=== PATIENT | female | born 1950 | race Caucasian/White ===

== ENCOUNTER 2018-06-09 09:50 | Emergency (ER) | payer BC, MEDICARE ==
--- OUTSIDE RECORDS SUMMARY | 2018-06-09 10:03 | XMS REPORT ---
:1950 External Reference #:[id number] Author Organization [facility] Medicine Address [address] [place] [address] Phone [phone] Care Team Providers Name Role Phone HCP given Primary Care Physician Unavailable Payers Type Date Identification Numbers Payment Provider Subscriber Commercial Policy Number: [id number] [facility] Demetriusburak Anguiano PayID: [id number] [address] [address] [place] [address] Problems Description No Information Family History Date Family Member(s) Problem(s) Comments General Diabetes, NOS in grdprt General pt is estranged from her sibs and somewhat from her children - no information is available Father High Blood Pressure : (age 90 Father due to Unknown Causes estranged Years) Onset: (09/26/2016) Mother Unknown Number of Children 3 sons and 1 daughter Number of Siblings Siblings: 4 brothers and 1 sister First Brother Heart Disease First Brother Allergies Social History Type Date Description Comments Marital Status 07/2017 Lives With Alone Work Status Not Currently Working Cigarette Use 09/01/2014 Denies Cigarette Use ETOH Use Rarely consumes alcohol Smoking Non Smoker Exercise Type/Frequency Exercises rarely Sun Exposure moderate amount of sun uses clothing protection exposure Allergies, Adverse Reactions, Alerts Date Description Reaction Status Severity Comments 03/28/2009 Penicillins active 07/05/2014 Sulfa active 01/14/2005 NKDA inactive Medications Medication Date Status Form Strength Qnty SIG Indications Ordering Provider Valacyclovir 05/11/ Active Tablets 500mg 6tabs take one A60.1 Silcoff, HCL 2018 tablet by Bin, mouth 2x/day M.D. for 3 days starting at onset of recurrent sores on anus Co Q-10 04/27/ Active Capsules 100mg 2 by mouth Unknown 2018 every day Milk Thistle 02/25/ Active Unknown 2017 PT For evaluate and M25.512 Silcomayo, Left>Right 2018 - treat, Bin, Shoulder Pain 05/10/ modalities as M.D. 2018 needed, instruct in hep Nifedipine Hx Ointment 30gm apply to anal K60.0 Silcoff, 2018 - region Bin, 03/29/ 2-4x/day; for M.D. 2018 acute anal fissure Lidocaine Cream 5% 30gm apply to K60.0 Silcoff, 2018 - affected area Bin, 03/29/ around anus M.D. 2017 up to every 4hrs as needed for pain PT For Vertigo please [phone] Justin, (BPV) 2008 - evaluate and Bin, 05/12/ treat M.D. 2011 Please Offer interfering [phone] Rosariocomayo, PT For 2005 - with ability Bin, Abdominal Wall 09/24/ to exercise. M.D. Pain 2004 please evaluate and treat. Immunizations CPT Code Status Date Vaccine Reaction Lot # [id number] Given 04/28/2018 Prevnar 13 [id number] Given 08/04/2011 Adacel or Boostrix, TDaP [id number] 33040 Given 09/18/2008 Flu, Split Virus 3Yrs [id number] Given 01/18/2000 DO Not Use- use U-code instead lyme vaccine -Unlisted Immunization Procedure 97110 Given 03/19/1999 DO Not Use- use U-code instead -Unlisted Immunization Procedure 36250 Given 02/16/1999 DO Not Use- use U-code instead -Unlisted Immunization Procedure 96229 Given 11/19/1997 Td Immunization [id number] Refused 01/06/2018 Shingrix Zoster (Shingles) Vaccine (HZV) Recomb,Subnit,Adjuvanted [id number] Refused 09/26/2016 Zostavax [id number] Refused 09/26/2016 Influenza Virus Vaccine, Quadrivalent, [place] Use [id number] Refused 09/01/2014 Flu, Split Virus 3Yrs Vital Signs Date Vital Result Comment 05/11/2018 Weight 174.00 lb 04/28/2018 Weight 178.50 lb 03/30/2018 Weight 180.00 lb with shoes 02/26/2018 Weight 191.00 lb 02/08/2018 Heart Rate 84 /min reg Respiratory Rate 14 /min not laboured Weight 185.00 lb 01/06/2018 Heart Rate 80 /min reg Respiratory Rate 14 /min not laboured Body Temperature 98.0 F Height 67.25 inches 5'7.25" Weight 196.00 lb BMI (Body Mass Index) 30.5 kg/m2 09/26/2016 Heart Rate 80 /min Respiratory Rate 16 /min Height 67 inches 5'7" Weight 220.00 lb BMI (Body Mass Index) 34.5 kg/m2 09/01/2014 BP Systolic 160 mmHg BP Diastolic 88 mmHg 07/05/2014 BP Systolic 146 mmHg BP Diastolic 86 mmHg Height 67.5 inches 5'7.50" shoes on Weight 210.00 lb shoes on BMI (Body Mass Index) 32.4 kg/m2 06/15/2013 Height 67 inches 5'7" Weight 205.00 lb BMI (Body Mass Index) 32.1 kg/m2 05/13/2012 Height 67.50 inches 5'7.50" Weight 197.00 lb BMI (Body Mass Index) 30.4 kg/m2 03/28/2011 BP Systolic 150 mmHg BP Diastolic 60 mmHg BP Systolic Recheck 149 mmHg BP Diastolic Recheck 61 mmHg Heart Rate 69 /min 67 Height 67.50 inches 5'7.50" Weight 207.00 lb BMI (Body Mass Index) 31.9 kg/m2 03/29/2009 BP Systolic 130 mmHg BP Diastolic 98 mmHg Heart Rate 80 /min Respiratory Rate 16 /min Body Temperature 98.3 F 03/28/2009 BP Systolic 130 mmHg BP Diastolic 82 mmHg Body Temperature 98.2 F Height 67.75 inches w/shoes Weight 195.00 lb BMI (Body Mass Index) 29.9 kg/m2 01/17/2009 BP Systolic 130 mmHg BP Diastolic 84 mmHg Body Temperature 98.4 F Weight 194.00 lb Last Menstrual Period 0 10/05/2008 BP Systolic 139 mmHg BP Diastolic 100 mmHg Body Temperature 98.4 F Height 66.5 inches 5'6.50" 10/05/2008 Height 66.5 inches 5'6.50" 09/18/2008 BP Systolic 120 mmHg BP Diastolic 84 mmHg Height 66.5 inches 5'6.50" Weight 198.00 lb BMI (Body Mass Index) 31.5 kg/m2 09/16/2007 BP Systolic 110 mmHg BP Diastolic 70 mmHg Heart Rate 70 /min Respiratory Rate 16 /min Height 67 inches 5'7" Weight 200.00 lb BMI (Body Mass Index) 31.3 kg/m2 05/12/2007 BP Systolic 126 mmHg BP Diastolic 82 mmHg Height 67 inches 5'7" Weight 202.00 lb BMI (Body Mass Index) 31.6 kg/m2 Last Menstrual Period 0 03/18/2007 BP Systolic 130 mmHg BP Diastolic 84 mmHg Body Temperature 98.7 F Height 67 inches 5'7" Weight 196.00 lb BMI (Body Mass Index) 30.7 kg/m2 09/14/2006 BP Systolic 122 mmHg BP Diastolic 82 mmHg Height 67 inches 5'7" Weight 199.00 lb BMI (Body Mass Index) 31.2 kg/m2 08/13/2005 BP Systolic 120 mmHg BP Diastolic 80 mmHg Height 67 inches 5'7" Weight 188.00 lb BMI (Body Mass Index) 29.4 kg/m2 05/21/2005 BP Systolic 126 mmHg BP Diastolic 88 mmHg Heart Rate 80 /min rrr Respiratory Rate 16 /min easy Height 67 inches 5'7" Weight 190.00 lb BMI (Body Mass Index) 29.8 kg/m2 Last Menstrual Period 0 02/12/2005 BP Systolic 114 mmHg BP Diastolic 76 mmHg Body Temperature 97.9 F Weight 198.00 lb 01/14/2005 BP Systolic 100 mmHg BP Diastolic 80 mmHg Heart Rate 80 /min Weight 196.00 lb Last Menstrual Period 0 11/20/2004 BP Systolic 126 mmHg BP Diastolic 90 mmHg Heart Rate 80 /min Body Temperature 98.1 F Weight 194.00 lb 11/14/2004 BP Systolic 122 mmHg BP Diastolic 76 mmHg Body Temperature 98.6 F Weight 192.00 lb 10/21/2004 BP Systolic 108 mmHg standing BP Diastolic 80 mmHg standing Heart Rate 80 /min Body Temperature 99.4 F Weight 196.00 lb 10/03/2004 BP Systolic 122 mmHg BP Diastolic 78 mmHg Weight 214.00 lb 10/03/2004 BP Systolic 122 mmHg BP Diastolic 78 mmHg Results Test Date Test Result H/L Range Note Laboratory test 05/11/2018 Herpes Simplex PCR <pending> finding Laboratory test 02/08/2018 Alpha 1 Antitrypsin 108 mg/dL 100 - 190 1 finding A1a Anti Nuclear Antibody 3.9 U 2 Smooth Muscle Antibody Negative Negative 3 CMV Igg/Igm 02/08/2018 Cytomegalovirus IgG Antibody Negative Negative 4 Cytomegalovirus IgM Antibody Negative Negative Laboratory test finding 02/08/2018 Ceruloplasmin 24.4 mg/dL 5 Endomysial Abs Negative Negative 6 Ferritin 272.5 ng/mL 11-307 Iron & Iron Binding Capacity 02/08/2018 Iron 29 g/dL Low 50-212 Unsaturated Iron Binding 159 g/dL Total Iron Binding Capacity 188 g/dL Low 250-450 Transferrin 134 mg/dL Low 203-362 % Iron Saturation 15 % 15-55 Laboratory test finding 02/08/2018 GGTP 69 U/L High 9-64.0 Hepatitis C Antibody Nonreactive Nonreactive Hepatitis B Surface Ag Nonreactive Nonreactive Hepatitis A AB Igm Nonreactive Nonreactive Liver Function Panel 02/08/2018 Total Protein 5.5 g/dL Low 6.4-8.9 Albumin 2.9 g/dL Low 3.2-5.2 Globulin 2.6 g/dL 2-4 Albumin/Globulin Ratio 1.1 1-3 Total Bilirubin 0.60 mg/dL 0.2-1.0 Direct Bilirubin 0.20 mg/dL High 0.03-0.18 Indirect Bilirubin 0.4 mg/dL 0.3-1.0 Alkaline Phosphatase 83 U/L 34-104 Alt 67 U/L High 7-52 Ast 80 U/L High 13-39 Inr/Protime 02/08/2018 Inr 0.99 0.77-1.02 Laboratory test finding 02/08/2018 Ammonia 35 mcmol/L 16-53 Comp Metabolic Panel 01/21/2018 Sodium 134 mmol/L Low 139-145 Potassium 4.9 mmol/L 3.5-5.0 Chloride 101 mmol/L 101-111 Co2 Carbon Dioxide 25 mmol/L 22-32 Anion Gap 8 mmol/L 2-11 Glucose 81 mg/dL 70-100 Blood Urea Nitrogen 13 mg/dL 6-24 Creatinine 0.89 mg/dL 0.51-0.95 BUN/Creatinine Ratio 14.6 8-20 Calcium 8.6 mg/dL 8.6-10.3 Total Protein 5.2 g/dL Low 6.4-8.9 Albumin 2.7 g/dL Low 3.2-5.2 Globulin 2.5 g/dL 2-4 Albumin/Globulin Ratio 1.1 1-3 Total Bilirubin 0.50 mg/dL 0.2-1.0 Alkaline Phosphatase 75 U/L 34-104 Alt 81 U/L High 7-52 Ast 105 U/L High 13-39 Egfr Non- 63.5 >60 Egfr 81.6 >60 7 Laboratory test finding 01/21/2018 Prealbumin 6 mg/dL Low 18-38 Laboratory test finding 01/06/2018 Occult Blood, F I T negative Laboratory test finding 01/06/2018 TSH (Thyroid Stim 5.05 mcIU/mL 0.34- 5.60 Horm) Prealbumin 7 mg/dL Low 18-38 B-Type Natriuretic Peptide BNP 61 pg/mL 8 CBC Auto Diff 01/06/2018 White Blood Count 8.0 10^3/uL 3.5-10.8 Red Blood Count 4.56 10^6/uL 4.0-5.4 Hemoglobin 13.1 g/dL 12.0-16.0 Hematocrit 40 % 35-47 Mean Corpuscular Volume 87 fL 80-97 Mean Corpuscular Hemoglobin 29 pg 27-31 Mean Corpuscular HGB Conc 33 g/dL 31-36 Red Cell Distribution Width 18 % High 10.5-15 Platelet Count 363 10^3/uL 150-450 Mean Platelet Volume 9.3 um3 7.4-10.4 Abs Neutrophils 5.5 10^3/uL 1.5-7.7 Abs Lymphocytes 1.5 10^3/uL 1.0-4.8 Abs Monocytes 0.7 10^3/uL 0-0.8 Abs Eosinophils 0.3 10^3/uL 0-0.6 Abs Basophils 0 10^3/uL 0-0.2 Abs Nucleated RBC 0 10^3/uL Granulocyte % 68.3 % 38-83 Lymphocyte % 19.2 % Low 25-47 Monocyte % 8.4 % High 0-7 Eosinophil % 3.5 % 0-6 Basophil % 0.6 % 0-2 Nucleated Red Blood Cells % 0 Comp Metabolic Panel 01/06/2018 Sodium 135 mmol/L 133-145 Potassium 4.5 mmol/L 3.5-5.0 Chloride 104 mmol/L 101-111 Co2 Carbon Dioxide 25 mmol/L 22-32 Anion Gap 6 mmol/L 2-11 Glucose 85 mg/dL 70-100 Blood Urea Nitrogen 10 mg/dL 6-24 Creatinine 0.78 mg/dL 0.51-0.95 BUN/Creatinine Ratio 12.8 8-20 Calcium 8.9 mg/dL 8.6-10.3 Total Protein 5.4 g/dL Low 6.4-8.9 Albumin 2.9 g/dL Low 3.2-5.2 Globulin 2.5 g/dL 2-4 Albumin/Globulin Ratio 1.2 1-3 Total Bilirubin 0.40 mg/dL 0.2-1.0 Alkaline Phosphatase 64 U/L 34-104 Alt 89 U/L High 7-52 Ast 106 U/L High 13-39 Egfr Non- 74.1 >60 Egfr 95.3 >60 9 Order 09/26/2016 occult blood, screening <pending> Laboratory test finding 09/26/2016 Cytology SEE RESULT BELOW 10 Human Papilloma Virus Rna Negative Negative 11 CBC Auto Diff 09/01/2014 White Blood Count 5.5 10^3/uL 4.8-10.8 12 Red Blood Count 4.73 10^6/uL 4.0-5.4 12 Hemoglobin 14.3 g/dL 12.0-16.0 12 Hematocrit 44 % 35-47 12 Mean Corpuscular Volume 94 fL 80-97 12 Mean Corpuscular Hemoglobin 30 pg 27-31 12 Mean Corpuscular HGB Conc 32 g/dL 31-36 12 Red Cell Distribution Width 15 % 10.5-15 12 Platelet Count 181 10^3/uL 150-450 12 Mean Platelet Volume 9 um3 7.4-10.4 12 Abs Neutrophils 3.2 10^3/uL 1.5-7.7 12 Abs Lymphocytes 1.8 10^3/uL 1.0-4.8 12 Abs Monocytes 0.3 10^3/uL 0-0.8 12 Abs Eosinophils 0.1 10^3/uL 0-0.6 12 Abs Basophils 0 10^3/uL 0-0.2 12 Abs Nucleated RBC 0 10^3/uL 12 Granulocyte % 58.2 % 38-83 12 Lymphocyte % 33.8 % 25-47 12 Monocyte % 5.9 % 1-9 12 Eosinophil % 1.6 % 0-6 12 Basophil % 0.5 % 0-2 12 Nucleated Red Blood Cells % 0.1 12 Comp Metabolic Panel 09/01/2014 Sodium 136 mmol/L 133-145 12 Potassium 4.3 mmol/L 3.5-5.0 12, 13 Chloride 102 mmol/L 101-111 12 Co2 Carbon Dioxide 26 mmol/L 22-32 12 Anion Gap 8 mmol/L 2-11 12 Glucose 82 mg/dL 70-100 12 Blood Urea Nitrogen 15 mg/dL 6-24 12 Creatinine 1.04 mg/dL High 0.51-0.95 12 BUN/Creatinine Ratio 14.4 8-20 12 Calcium 9.7 mg/dL 8.6-10.3 12 Total Protein 7.2 g/dL 6.4-8.9 12 Albumin 4.3 g/dL 3.2-5.2 12 Globulin 2.9 g/dL 2-4 12 Albumin/Globulin Ratio 1.5 1-3 12 Total Bilirubin 0.70 mg/dL 0.2-1.0 12 Alkaline Phosphatase 63 U/L 34-104 12 Alt 12 U/L 7-52 12 Ast 15 U/L 13-39 12 Egfr Non- 53.7 >60 12 Egfr 69.1 >60 12, 14 Clotest 08/02/2013 Clotest (SEE NOTE) 15 Surgical Pathology 08/02/2013 S RUN DATE: <SEE NOTE> Laboratory test finding 06/15/2013 Hemoglobin 12.8 CBC No Diff 07/26/2012 White Blood Count 5.0 10^3/uL 4.8-10.8 Red Blood Count 3.43 10^6/uL Low 4.0-5.4 Hemoglobin 10.7 g/dL Low 12.0-16.0 Hematocrit 31 % Low 35-47 Mean Corpuscular Volume 91 fL 80-97 Mean Corpuscular Hemoglobin 31 pg 27-31 Mean Corpuscular HGB Conc 34 g/dL 31-36 Red Cell Distribution Width 15 % 10.5-15 Platelet Count 158 10^3/uL 150-450 Mean Platelet Volume 10 um3 7.4-10.4 Basic Metabolic Panel 07/26/2012 Sodium 141 mmol/L 133-145 Potassium 4.5 mmol/L 3.5-5.0 Chloride 108 mmol/L 101-111 Co2 Carbon Dioxide 29.0 mmol/L 22-32 Anion Gap 4.0 mmol/L 2-11 Glucose 83 mg/dL 70-100 Blood Urea Nitrogen 5 mg/dL Low 6-24 Creatinine 1.00 mg/dL 0.50-1.40 BUN/Creatinine Ratio 5.0 Low 8-20 Calcium 8.4 mg/dL 8.1-9.9 Egfr Non- 56.6 >60 Egfr 72.7 >60 17 Laboratory test finding 07/26/2012 Magnesium 1.8 mg/dL 1.7-2.6 CBC Auto Diff 07/25/2012 White Blood Count 7.7 10^3/uL 4.8-10.8 Red Blood Count 3.68 10^6/uL Low 4.0-5.4 Hemoglobin 11.2 g/dL Low 12.0-16.0 Hematocrit 34 % Low 35-47 Mean Corpuscular Volume 92 fL 80-97 Mean Corpuscular Hemoglobin 31 pg 27-31 Mean Corpuscular HGB Conc 33 g/dL 31-36 Red Cell Distribution Width 15 % 10.5-15 Platelet Count 184 10^3/uL 150-450 Mean Platelet Volume 10 um3 7.4-10.4 Abs Neutrophils 4.5 10^3/uL 1.5-7.7 Abs Lymphocytes 2.5 10^3/uL 1.0-4.8 Abs Monocytes 0.6 10^3/uL 0-0.8 Abs Eosinophils 0.1 10^3/uL 0-0.6 Abs Basophils 0 10^3/uL 0-0.2 Abs Nucleated RBC 0 10^3/uL Granulocyte % 58.5 % 38-83 Lymphocyte % 32.5 % 25-47 Monocyte % 7.5 % 1-9 Eosinophil % 0.9 % 0-6 Basophil % 0.6 % 0-2 Nucleated Red Blood Cells % 0 Basic Metabolic Panel 07/25/2012 Sodium 139 mmol/L 133-145 Potassium 4.4 mmol/L 3.5-5.0 Chloride 107 mmol/L 101-111 Co2 Carbon Dioxide 29.0 mmol/L 22-32 Anion Gap 3.0 mmol/L 2-11 Glucose 95 mg/dL 70-100 Blood Urea Nitrogen 5 mg/dL Low 6-24 Creatinine 0.90 mg/dL 0.50-1.40 BUN/Creatinine Ratio 5.6 Low 8-20 Calcium 8.7 mg/dL 8.1-9.9 Egfr Non- 63.9 >60 Egfr 82.1 >60 18 Laboratory test finding 07/25/2012 Magnesium 1.8 mg/dL 1.7-2.6 CBC No Diff 07/24/2012 White Blood Count 9.9 10^3/uL 4.8-10.8 Red Blood Count 3.82 10^6/uL Low 4.0-5.4 Hemoglobin 11.8 g/dL Low 12.0-16.0 Hematocrit 35 % 35-47 Mean Corpuscular Volume 91 fL 80-97 Mean Corpuscular Hemoglobin 31 pg 27-31 Mean Corpuscular HGB Conc 34 g/dL 31-36 Red Cell Distribution Width 15 % 10.5-15 Platelet Count 170 10^3/uL 150-450 Mean Platelet Volume 9 um3 7.4-10.4 Basic Metabolic Panel 07/24/2012 Sodium 136 mmol/L 133-145 Potassium 3.5 mmol/L 3.5-5.0 Chloride 102 mmol/L 101-111 Co2 Carbon Dioxide 30.0 mmol/L 22-32 Anion Gap 4.0 mmol/L 2-11 Glucose 105 mg/dL High 70-100 Calcium 8.6 mg/dL 8.1-9.9 Blood Urea Nitrogen 7 mg/dL 6-24 Creatinine 0.90 mg/dL 0.50-1.40 BUN/Creatinine Ratio 7.8 Low 8-20 Egfr Non- 63.9 >60 Egfr 82.1 >60 19 Laboratory test finding 07/24/2012 Magnesium 1.7 mg/dL 1.7-2.6 Troponin I 0.02 NG/ML 20 TSH (Thyroid Stimulating Horm) 2.84 MIU/ML 0.34-5.60 MRSA Screen 07/24/2012 MRSA Culture Screen (SEE NOTE) 21 CBC Auto Diff 07/23/2012 White Blood Count 10.9 10^3/uL High 4.8-10.8 Red Blood Count 4.04 10^6/uL 4.0-5.4 Hemoglobin 12.2 g/dL 12.0-16.0 Hematocrit 37 % 35-47 Mean Corpuscular Volume 91 fL 80-97 Mean Corpuscular Hemoglobin 30 pg 27-31 Mean Corpuscular HGB Conc 33 g/dL 31-36 Red Cell Distribution Width 15 % 10.5-15 Platelet Count 166 10^3/uL 150-450 Mean Platelet Volume 9 um3 7.4-10.4 Abs Neutrophils 9.8 10^3/uL High 1.5-7.7 Abs Lymphocytes 0.6 10^3/uL Low 1.0-4.8 Abs Monocytes 0.5 10^3/uL 0-0.8 Abs Eosinophils 0 10^3/uL 0-0.6 Abs Basophils 0 10^3/uL 0-0.2 Abs Nucleated RBC 0 10^3/uL Granulocyte % 90.1 % High 38-83 Lymphocyte % 5.5 % Low 25-47 Monocyte % 4.3 % 1-9 Eosinophil % 0 % 0-6 Basophil % 0.1 % 0-2 Nucleated Red Blood Cells % 0 Basic Metabolic Panel 07/23/2012 Sodium 136 mmol/L 133-145 Potassium 4.8 mmol/L 3.5-5.0 Chloride 103 mmol/L 101-111 Co2 Carbon Dioxide 30.0 mmol/L 22-32 Anion Gap 3.0 mmol/L 2-11 Glucose 175 mg/dL High 70-100 Blood Urea Nitrogen 8 mg/dL 6-24 Creatinine 0.90 mg/dL 0.50-1.40 BUN/Creatinine Ratio 8.9 8-20 Calcium 8.8 mg/dL 8.1-9.9 Egfr Non- 63.9 >60 Egfr 82.1 >60 22 Comp Metabolic Panel 07/13/2012 Sodium 138 mmol/L 135-145 23 Potassium 4.2 mmol/L 3.5-5.0 23 Chloride 106 mmol/L 101-111 23 Co2 (Carbon Dioxide) 25.0 mmol/L 22-32 23 Anion Gap 7.0 mmol/L 2-11 23, 24 Glucose 81 mg/dL 70-100 23 BUN 8 mg/dL 6-24 23 Creatinine 0.9 mg/dL 0.50-1.40 23 One Over Creatinine 1.11 23 BUN/Creatinine Ratio 8.9 8-20 23 Calcium 9.9 mg/dL 8.1-9.9 23 Total Protein 6.7 GM/DL 6.2-8.1 23 Albumin 4.2 GM/DL 3.2-5.2 23 Globulin 2.5 GM/DL 2-4 23 Albumin/Globulin Ratio 1.7 1-3 23 Bilirubin Total 0.9 mg/dL 0.4-1.5 23, 25 Alkaline Phosphatase 54 U/L 30-110 23 Alt (SGPT) 12 U/L Low 14-54 23 Ast (Sgot) 16 U/L 12-42 23 eGFR Non- 63.9 > 60 23 eGFR 82.1 > 60 23, 26 CBC Auto Diff 07/13/2012 White Blood Count 5.4 CUMM 4.8-10.8 23 Red Cell Count 4.33 CUMM 4.2-5.4 23 Hemoglobin 13.2 g/dL 12.0-16.0 23 Hematocrit 40 % 35-47 23 Mean Corpuscular Volume 93 um3 79-97 23 Mean Corpuscular Hemoglob 31 pg 27-31 23 Mean Corpuscular HGB Cone 33 g/dL 32-36 23 Redcell Distribution WDTH 16 % High 10.5-15 23 Platelet Count 196 CUMM 150-450 23 Mean Platelet Volume 8.7 um3 7.4-10.4 23 Absolute Neutrophil Count 3.0 1.5-7.7 23 Manual Differential 07/13/2012 Polysegmented Neutrophil 66 % 38-83 23 Lymphocyte 30 % 25-47 23 Monocyte 3 % 0-13 23 Eosinophil 1 % 0-6 23 RBC Morphology NORMAL 23 Anisocytosis SLIGHT 23 CBC Auto Diff 04/08/2012 White Blood Count 5.9 CUMM 4.8-10.8 Red Cell Count 3.97 CUMM Low 4.2-5.4 Hemoglobin 12.2 g/dL 12.0-16.0 Hematocrit 36 % 35-47 Mean Corpuscular Volume 90 um3 79-97 Mean Corpuscular Hemoglob 31 pg 27-31 Mean Corpuscular HGB Cone 34 g/dL 32-36 Redcell Distribution WDTH 17 % High 10.5-15 Platelet Count 191 CUMM 150-450 Mean Platelet Volume 8.8 um3 7.4-10.4 Gran % 48.4 % 38-83 Lymph % 40.7 % 25-47 Mononuclear % 7.9 % 1-9 Eosinophil % 2.6 % 0-6 Basophil % 0.4 % 0-2 Abs Lymphs 2.4 1.0-4.8 Abs Mononuclear 0.5 0-0.8 Absolute Neutrophil Count 2.9 1.5-7.7 Abs Eosinophils 0.2 0-0.6 Abs Basophils 0 0-0.2 Comp Metabolic Panel 04/08/2012 Sodium 138 mmol/L 135-145 Potassium 3.5 mmol/L 3.5-5.0 Chloride 111 mmol/L 101-111 Co2 (Carbon Dioxide) 24.0 mmol/L 22-32 Anion Gap 3.0 mmol/L 2-11 27 Glucose 89 mg/dL 70-100 BUN 14 mg/dL 6-24 Creatinine 0.8 mg/dL 0.50-1.40 One Over Creatinine 1.25 BUN/Creatinine Ratio 17.5 8-20 Calcium 9.1 mg/dL 8.1-9.9 Total Protein 6.7 GM/DL 6.2-8.1 Albumin 3.9 GM/DL 3.2-5.2 Globulin 2.8 GM/DL 2-4 Albumin/Globulin Ratio 1.4 1-3 Bilirubin Total 0.5 mg/dL 0.4-1.5 28 Alkaline Phosphatase 54 U/L 30-110 Alt (SGPT) 14 U/L 14-54 Ast (Sgot) 15 U/L 12-42 eGFR Non- 73.2 > 60 eGFR 94.1 > 60 29 Laboratory test finding 04/08/2012 Troponin-I 0 NG/ML 0-0.06 30 Urinalysis W/Microscopic 02/15/2012 Ua Color DANA Yellow Appearance-Urine CLEAR Clear Specific [place]-Ur 1.025 1.010-1.030 Esterase-Urine NEGATIVE Negative Nitrite NEGATIVE Negative [id number]-ZWN NEGATIVE Negative Protein-Urine NEGATIVE Negative PH-Urine 5.0 5-9 Blood-Urine 2+ Negative Ketones-Urine TRACE Negative Bilirubin-Ur SEE ICTOTEST Negative Glucose-Urine NEGATIVE Negative WBC-Urine 0-2 0-5 RBC-Urine 0-2 0-2 Mucus Urine SMALL None Epith Cells-Ur FEW None Laboratory test finding 02/15/2012 Ictotest POSITIVE 31 CBC No Diff 02/15/2012 White Blood Count 12.1 CUMM High 4.8-10.8 Red Cell Count 4.26 CUMM 4.2-5.4 Hemoglobin 13.4 g/dL 12.0-16.0 Hematocrit 39 % 35-47 Mean Corpuscular Volume 91 um3 79-97 Mean Corpuscular Hemoglob 31 pg 27-31 Mean Corpuscular HGB Cone 35 g/dL 32-36 Redcell Distribution WDTH 14 % 10.5-15 Platelet Count 248 CUMM 150-450 Mean Platelet Volume 8.6 um3 7.4-10.4 Comp Metabolic Panel 02/15/2012 Sodium 135 mmol/L 135-145 Potassium 3.7 mmol/L 3.5-5.0 Chloride 105 mmol/L 101-111 Co2 (Carbon Dioxide) 24.0 mmol/L 22-32 Anion Gap 6.0 mmol/L 2-11 32 Glucose 89 mg/dL 70-100 BUN 16 mg/dL 6-24 Creatinine 1.0 mg/dL 0.50-1.40 One Over Creatinine 1.00 BUN/Creatinine Ratio 16.0 8-20 Calcium 8.8 mg/dL 8.1-9.9 Total Protein 7.3 GM/DL 6.2-8.1 Albumin 3.6 GM/DL 3.2-5.2 Globulin 3.7 GM/DL 2-4 Albumin/Globulin Ratio 1.0 1-3 Bilirubin Total 0.8 mg/dL 0.4-1.5 33 Alkaline Phosphatase 78 U/L 30-110 Alt (SGPT) 37 U/L 14-54 Ast (Sgot) 32 U/L 12-42 eGFR Non- 56.6 > 60 eGFR 72.7 > 60 34 Laboratory test finding 02/15/2012 Amylase 31 U/L 20-120 35 Manual Differential 02/15/2012 Polysegmented Neutrophil 79 % 38-83 Band Neutrophil 3 % 0-8 Lymphocyte 16 % Low 25-47 Monocyte 2 % 0-13 Absolute Neutrophil Count 9.90 RBC Morphology NORMAL Laboratory test 10/05/2008 Surgical Pathology <SEE 36 finding NOTE> Laboratory test 09/18/2008 Cytology no/hpv neg 37 finding Laboratory test 09/18/2008 Occult Blood - Stool neg x3 finding Urine Micro Inhouse 09/18/2008 Urine Microscopic SEE RESULT NOTE 38 Inhouse Ua Inhouse 09/18/2008 Ua Glucose - 38 Ua Bilirubin - 38 Ua Ketones - 38 Ua Specific [place] 1.025 38 Ua Blood SM 38 Ua PH 5.0 38 Ua Protein - 38 Ua Urobilinogen - 38 Ua Nitrite - 38 Ua Leukocytes - 38 Laboratory test finding 09/21/2007 Occult Blood - Stool neg x3 Laboratory test finding 09/20/2007 Cytology wnl 39 CBC With Manual Diff 12/24/2006 White Blood Count 5.6 CUMM 4.8-10.8 Absolute Neutrophil Count 2.1 Anisocytosis SLIGHT Hematocrit 41 % 35-47 Hemoglobin 14.1 g/dL 12.0-16.0 Eosenophil 3 % 0-6 Lymphocyte 51 % High 5-47 Mean Corpuscular HGB Cone 35 g/dL 32-36 Mean Corpuscular Hemoglob 31 pg 27-31 Mean Corpuscular Volume 89 um3 79-97 Monocyte 8 % 0-13 Mean Platelet Volume 8.9 um3 7.4-10.4 Platelet Count 262 CUMM 150-450 Polysegmented Neutrophil 38 % 38-83 Red Cell Count 4.59 CUMM 4.2-5.4 Redcell Distribution WDTH 14 % 10.5-15 Comp Metabolic Panel 12/24/2006 One Over Creatinine 0.83 Anion Gap 7.0 mmol/L 2-11 40 Albumin/Globulin Ratio 1.8 1-3 Albumin 4.1 GM/DL 3.6-5.4 Alkaline Phosphatase 85 U/L 30-110 Alt (SGPT) 17 U/L 14-54 Ast (Sgot) 19 U/L 12-42 BUN 18 mg/dL 6-24 Calcium 10.1 mg/dL 8.7-10.2 Chloride 107 mmol/L 101-111 Co2 (Carbon Dioxide) 30.0 mmol/L 22-32 Globulin 2.3 GM/DL 2-4 Glucose 92 mg/dL 70-105 Potassium 5.2 mmol/L High 3.5-5.0 Sodium 144 mmol/L 135-145 Bilirubin Total 0.7 mg/dL 0.4-1.5 Total Protein 6.4 GM/DL 6.2-8.1 BUN/Creatinine Ratio 15.0 8-20 Creatinine 1.2 mg/dL 0.5-1.4 Lipid Profile 12/24/2006 Cholesterol/HDL Ratio 3.48 AVERAGE 1-4.44 (Trig/Chol/HDL) Cholesterol 254 mg/dL High Less Than 200 41 Triglyceride 73 mg/dL 40-200 High Density Lipoprotein 73 mg/dL High 40-60 42 Low Density Lipoprotein 166 mg/dL High Less Than 100 43 Laboratory test finding 09/15/2006 Urine Microscopic Inhouse 5-10wbc,epi Ua Inhouse 09/15/2006 Ua Glucose - Ua Bilirubin - Ua Ketones - Ua Specific [place] 1.030 Ua Blood + Ua PH 5.0 Ua Protein - Ua Urobilinogen - Ua Nitrite - Ua Leukocytes ++ Laboratory test finding 09/14/2006 Cytology normal 44 Laboratory test finding 05/21/2005 Urine Microscopic Inhouse 0-1 WBC,1-2 epi Ua Inhouse 05/21/2005 Ua Glucose neg Ua Bilirubin neg Ua Ketones neg Ua Specific [place] 1.015 Ua Blood mod Ua PH 5.0 Ua Protein neg Ua Urobilinogen neg Ua Nitrite neg Ua Leukocytes neg Laboratory test finding 11/15/2004 Urine Microscopic Inhouse SEE RESULT NOTES 45 Ua Inhouse 11/15/2004 Ua Glucose NEG 45 Ua Bilirubin NEG 45 Ua Ketones NEG 45 Ua Specific [place] 1.030 45 Ua Blood ++ 45 Ua PH 5.0 45 Ua Protein TRACE 45 Ua Urobilinogen NEG 45 Ua Nitrite NEG 45 Ua Leukocytes NEG 45 1 Test Performed by: [facility] - [address] [id number] 2 Interpretation: Positive (3.0-5.9) REFERENCE VALUE <=1.0 (Negative) Test Performed by: [facility] - [address] [id number] 3 ADDITIONAL INFORMATION This test was developed and its performance characteristics determined by [facility] in a manner consistent with CLIA requirements. This test has not been cleared or approved by the [place] Food and Drug Administration. Test Performed by: [facility] - [address] [id number] Test Performed by: [facility] - [facility] [address] [place] [address] 5 REFERENCE VALUE 20.0 - 51.0 Test Performed by: [address] [id number] 6 A negative serum IgA endomysial antibody is usually seen in normal individuals, however a diagnosis of celiac disease, dermatitis herpetiformis and other gluten sensitive disorders cannot be completely excluded, as this test may be negative in a subset of individuals with these disorders. If the clinical suspicion for one of these disorders is high, recommend further testing for gluten sensitivity as indicated by the Celiac Disease Comprehensive [place] ([place] Test [facility] Code CDCOM). In addition serum IgA endomysial antibody may also be negative in gluten-sensitive patients (with celiac disease, dermatitis herpetiformis or other gluten-sensitive disorders), who adhere to a strict gluten-free diet. ADDITIONAL INFORMATION This test has been modified from the waste reduction coordinator's instructions. Its performance characteristics were determined by [facility] in a manner consistent with CLIA requirements. This test has not been cleared or approved by the U.S. Food and Drug Administration. Test Performed by: [address] [address] 7 Because ethnic data is not always readily available, this report includes an eGFR for both -Americans and non- Americans. The National Kidney Disease Education Program (NKDEP) does not endorse the use of the MDRD equation for patients that are not between the ages of 18 and 70, are , have extremes of body size, muscle mass, or nutritional status, or are non- or non-. According to the National Kidney Foundation, irrespective of diagnosis, the stage of the disease is based on the level of kidney function: Stage Description GFR(mL/min/1.73 m(2)) 1 Kidney damage with normal or decreased GFR 90 2 Kidney damage with mild decrease in GFR 60-89 3 Moderate decrease in GFR 30-59 4 Severe decrease in GFR 15-29 5 Kidney failure <15 (or dialysis) 8 >100 to <200 pg/mL: likely compensated congestive heart failure (CHF) 200 to 400 pg/mL: likely moderate CHF >400 pg/mL: likely moderate to severe CHF 9 Because ethnic data is not always readily available, this report includes an eGFR for both -Americans and non- Americans. The National Kidney Disease Education Program (NKDEP) does not endorse the use of the MDRD equation for patients that are not between the ages of 18 and 70, are , have extremes of body size, muscle mass, or nutritional status, or are non- or non-. According to the National Kidney Foundation, irrespective of diagnosis, the stage of the disease is based on the level of kidney function: Stage Description GFR(mL/min/1.73 m(2)) 1 Kidney damage with normal or decreased GFR 90 2 Kidney damage with mild decrease in GFR 60-89 3 Moderate decrease in GFR 30-59 4 Severe decrease in GFR 15-29 5 Kidney failure <15 (or dialysis) 10 SEE RESULT BELOW Name: SUREKHA ANGUIANO Ligia : [address]: Fran Martinez MD Acct: [id number] Unit: [id number] AGE: 66 Location: [facility] Re09/26/16 SEX: F Status: REG REF SPEC: [id number] DEBORAH: 09/26/16-1610 [facility] DR: Fran Martinez MD REQ: [id number] RECD: 09/26/16295 STATUS: SOUT _ ORDERED: IMAGE ANALYSIS, HPV/Thin Prep COMMENTS: [id number] FINAL DIAGNOSIS Negative for Intraepithelial lesion or Malignancy A. Ectocervical/Endocervical Specimen Adequacy: Satisfactory of evaluation Transformation zone component identified Patient Information: HPV: High risk HPV RNA testing regardless of pap results. Actual Specimen Date: 09/26/16 LMP If Unknown: unknown ?: N Post Menopausal?: Y Hysterectomy?: N Date Time Test Result Flag (u) Normal Range 09/26/16 1610 HPV RNA Negative Negative The high-risk HPV types detected by the assay include: 16, 18, 31, 33, 35, 39, 45, 51, 52, 56, 58, 59, 66, and 68. Signed (signature on file) [facility] (ASC) 09/29 1428 This Pap test was evaluated with the assistance of the [employer] Test Imaging System. Due to cytologic findings at the body mechanic microscope, comprehensive manual rescreening by a Car Deliverer may be required. The Pap Smear is a screening test designed to aid in the detection of premalignant and malignant conditions of the uterine cervix. It is not a diagnostic procedure and should not be used as the sole means of detecting cervical cancer. Both false- positive and false- negative reports do occur. Depending on your risk status, a Pap smear should be obtained and evaluated every 1-3 years. END OF REPORT * ML=Testing performed at Main Lab DEPARTMENT OF PATHOLOGY, [address] [place], [place] [id number] Indio Santacruz M.D. Director [facility] # [id number] 11 The high-risk HPV types detected by the assay include: 16, 18, 31, 33, 35, 39, 45, 51, 52, 56, 58, 59, 66, and 68. 12 FASTING 13 Potassium reference range changed effective 08/20/14 14 Because ethnic data is not always readily available, this report includes an eGFR for both -Americans and non- Americans. The National Kidney Disease Education Program (NKDEP) does not endorse the use of the MDRD equation for patients that are not between the ages of 18 and 70, are , have extremes of body size, muscle mass, or nutritional status, or are non- or non-. According to the National Kidney Foundation, irrespective of diagnosis, the stage of the disease is based on the level of kidney function: Stage Description GFR(mL/min/1.73 m(2)) 1 Kidney damage with normal or decreased GFR 90 2 Kidney damage with mild decrease in GFR 60-89 3 Moderate decrease in GFR 30-59 4 Severe decrease in GFR 15-29 5 Kidney failure <15 (or dialysis) 15 RUN DATE: 08/03/13 [facility] LAB LIVE PAGE 1 RUN TIME: [address] [place] [address] Specimen Inquiry Name: SUREKHA ANGUIANO : [address]: Yung Carter MD Acct: [id number] Unit: [id number] AGE: 63 Location: [facility] Re08/02/13 SEX: F Status: REG REF SPEC: [id number] DEBORAH: 08/02/13 [facility] DR: Yung Carter MD REQ: [id number] RECD: 08/02/13 STATUS: CARA ANDRADE DR: Bin Anderson MD _ SOURCE: GAS ANTRUM [facility]: ORDERED: Clotest Procedure Result Verified Site Clotest Final 08/03/13 37 ML Clotest Negative END OF REPORT * ML=Testing performed at Main Lab DEPARTMENT OF PATHOLOGY, [address] [place] [address] Indio Santacruz M.D. Director [facility] Permit #[id number] RUN DATE: 08/03/13 [facility] LAB LIVE PAGE 1 RUN TIME: [address] [place] [address] Specimen Inquiry Name: SUREKHA ANGUIANO : [address]: Yung Carter MD Acct: [id number] Unit: [id number] AGE: 63 Location: [facility] Re08/02/13 SEX: F Status: REG REF SPEC: [id number] DEBORAH: 08/02/13- SUBM DR: Yung Carter MD REQ: [id number] RECD: 08/02/131158 STATUS: EL ANDRADE DR: Quita Olmstead PA _ ORDERED: LEVEL IV FINAL DIAGNOSIS Esophagus, biopsy: A. Squamous and columnar mucosa with pancreatic acinar metaplasia and mild chronic inflammation. B. No evidence of intestinal metaplasia or dysplasia. CLINICAL HISTORY Heartburn POST-OPERATIVE DIAGNOSIS Esophagus - ring biopsied, grade A erosive esophagitis; stomach - gastritis biopsied; duodenum - normal GROSS DESCRIPTION The specimen is received in formalin labeled Surekha Anguiano, Esophageal Ring Biopsy, and consists of two portions of white-siegel tissue that in aggregate measure 0.5 x 0.4 x 0.2 cm. Submitted entirely, one cassette. Signed (signature on file) Christina Hart MD 1610 END OF REPORT * ML=Testing performed at Main Lab DEPARTMENT OF PATHOLOGY, [address] [place] [address] Indio Santacruz M.D. Director [facility] Permit #[id number] 17 Because ethnic data is not always readily available, this report includes an eGFR for both -Americans and non- Americans. The National Kidney Disease Education Program (NKDEP) does not endorse the use of the MDRD equation for patients that are not between the ages of 18 and 70, are , have extremes of body size, muscle mass, or nutritional status, or are non- or non-. According to the National Kidney Foundation, irrespective of diagnosis, the stage of the disease is based on the level of kidney function: Stage Description GFR(mL/min/1.73 m(2)) 1 Kidney damage with normal or decreased GFR 90 2 Kidney damage with mild decrease in GFR 60-89 3 Moderate decrease in GFR 30-59 4 Severe decrease in GFR 15-29 5 Kidney failure <15 (or dialysis) 18 Because ethnic data is not always readily available, this report includes an eGFR for both -Americans and non- Americans. The National Kidney Disease Education Program (NKDEP) does not endorse the use of the MDRD equation for patients that are not between the ages of 18 and 70, are , have extremes of body size, muscle mass, or nutritional status, or are non- or non-. According to the National Kidney Foundation, irrespective of diagnosis, the stage of the disease is based on the level of kidney function: Stage Description GFR(mL/min/1.73 m(2)) 1 Kidney damage with normal or decreased GFR 90 2 Kidney damage with mild decrease in GFR 60-89 3 Moderate decrease in GFR 30-59 4 Severe decrease in GFR 15-29 5 Kidney failure <15 (or dialysis) 19 Because ethnic data is not always readily available, this report includes an eGFR for both -Americans and non- Americans. The National Kidney Disease Education Program (NKDEP) does not endorse the use of the MDRD equation for patients that are not between the ages of 18 and 70, are , have extremes of body size, muscle mass, or nutritional status, or are non- or non-. According to the National Kidney Foundation, irrespective of diagnosis, the stage of the disease is based on the level of kidney function: Stage Description GFR(mL/min/1.73 m(2)) 1 Kidney damage with normal or decreased GFR 90 2 Kidney damage with mild decrease in GFR 60-89 3 Moderate decrease in GFR 30-59 4 Severe decrease in GFR 15-29 5 Kidney failure <15 (or dialysis) 20 Reference Range and Interpretation: TnI (ng/ml) Interpretation Less Than 0.06 ng/mL Not supportive of diagnosis of SD 0.06 - 0.50 ng/ml Indeterminate: suggest serial studies if clinically indicated. Greater than 0.5 ng/mL Consistent with diagnosis of SD 21 RUN DATE: 07/26/12 [facility] LAB LIVE PAGE 1 RUN TIME: [address] [place] [address] Specimen Inquiry Name: SUREKHA ANGUIANO : [address]: Rhett ARMENDARIZ,Farhan Patricia Acct: [id number] Unit: [id number] AGE: 62 Location: ICU Re07/22/12 SEX: F Status: ADM IN SPEC: [id number] DEBORAH: 07/24/[address]: Rhett ARMENDARIZ, Farhan Patricia REQ: [id number] RECD: 07/24/12 STATUS: CARA ANDRADE DR: TATE Anderson MD,[facility] SOURCE: NASAL SPDESC: ORDERED: MRSA Cult Scrn Procedure Result Verified Site MRSA Culture Screen Final 07/26/12- 1111 ML MRSA Screen No MRSA Isolated END OF REPORT * ML=Testing performed at Main Lab DEPARTMENT OF PATHOLOGY, [address] [place] [address] Indio Santacruz M.D. Director [facility] Permit #[id number] 22 Because ethnic data is not always readily available, this report includes an eGFR for both -Americans and non- Americans. The National Kidney Disease Education Program (NKDEP) does not endorse the use of the MDRD equation for patients that are not between the ages of 18 and 70, are , have extremes of body size, muscle mass, or nutritional status, or are non- or non-. According to the National Kidney Foundation, irrespective of diagnosis, the stage of the disease is based on the level of kidney function: Stage Description GFR(mL/min/1.73 m(2)) 1 Kidney damage with normal or decreased GFR 90 2 Kidney damage with mild decrease in GFR 60-89 3 Moderate decrease in GFR 30-59 4 Severe decrease in GFR 15-29 5 Kidney failure <15 (or dialysis) 23 AA 07/22 24 Anion gap measurement may be of limited value in the presence of any alkalosis, especially in a combined acid base disorder. . 25 A metabolite of Naproxen, O-desmethylnaproxen, has been shown to interfere with the Jendrassik-Brandermill method for measuring total bilirubin. Samples from patients who have taken Naproxen have shown spurious elevation in total bilirubin levels. 26 Because ethnic data is not always readily available, this report includes an eGFR for both -Americans and non- Americans. The National Kidney Disease Education Program (NKDEP) does not endorse the use of the MDRD equation for patients that are not between the ages of 18 and 70, are , have extremes of body size, muscle mass, or nutritional status, or are non- or non-. According to the National Kidney Foundation, irrespective of diagnosis, the stage of the disease is based on the level of kidney function: Stage Description GFR(mL/min/1.73 m(2)) 1 Kidney damage with normal or decreased GFR 90 2 Kidney damage with mild decrease in GFR 60-89 3 Moderate decrease in GFR 30-59 4 Severe decrease in GFR 15-29 5 Kidney failure <15 (or dialysis) 27 Anion gap measurement may be of limited value in the presence of any alkalosis, especially in a combined acid base disorder. . 28 A metabolite of Naproxen, O-desmethylnaproxen, has been shown to interfere with the Jendrassik-Brandermill method for measuring total bilirubin. Samples from patients who have taken Naproxen have shown spurious elevation in total bilirubin levels. 29 Because ethnic data is not always readily available, this report includes an eGFR for both -Americans and non- Americans. The National Kidney Disease Education Program (NKDEP) does not endorse the use of the MDRD equation for patients that are not between the ages of 18 and 70, are , have extremes of body size, muscle mass, or nutritional status, or are non- or non-. According to the National Kidney Foundation, irrespective of diagnosis, the stage of the disease is based on the level of kidney function: Stage Description GFR(mL/min/1.73 m(2)) 1 Kidney damage with normal or decreased GFR 90 2 Kidney damage with mild decrease in GFR 60-89 3 Moderate decrease in GFR 30-59 4 Severe decrease in GFR 15-29 5 Kidney failure <15 (or dialysis) 30 New Reference Range and Interpretation effective 07/22/2002 TnI (ng/ml) INTERPRETATION Less Than 0.06 ng/mL NOT SUPPORTIVE OF DIAGNOSIS OF SD 0.06 - 0.50 ng/ml INDETERMINATE: SUGGEST SERIAL STUDIES IF CLINICALLY INDICATED. Greater than 0.5 ng/mL CONSISTENT WITH DIAGNOSIS OF SD . 31 ICTOTEST IS A QUALITATIVE CONFIRMATORY TEST FOR BILIRUBIN. 32 Anion gap measurement may be of limited value in the presence of any alkalosis, especially in a combined acid base disorder. . 33 A metabolite of Naproxen, O-desmethylnaproxen, has been shown to interfere with the Jendrassik-Neda method for measuring total bilirubin. Samples from patients who have taken Naproxen have shown spurious elevation in total bilirubin levels. 34 Because ethnic data is not always readily available, this report includes an eGFR for both -Americans and non- Americans. The National Kidney Disease Education Program (NKDEP) does not endorse the use of the MDRD equation for patients that are not between the ages of 18 and 70, are , have extremes of body size, muscle mass, or nutritional status, or are non- or non-. According to the National Kidney Foundation, irrespective of diagnosis, the stage of the disease is based on the level of kidney function: Stage Description GFR(mL/min/1.73 m(2)) 1 Kidney damage with normal or decreased GFR 90 2 Kidney damage with mild decrease in GFR 60-89 3 Moderate decrease in GFR 30-59 4 Severe decrease in GFR 15-29 5 Kidney failure <15 (or dialysis) 35 PLEASE NOTE NEW REFERENCE RANGE. 36 ---- RUN DATE: 10/09/08 [facility] NMI LIVE PAGE 1 RUN TIME: 1301 Specimen Inquiry RUN USER: INTERFACE -- [id number] Status: REG REF Re10/05/08 Age/Sex: 58/F Unit#: [id number] Location: [facility] : [birth year] -- Specimen: [id number] SOUT Spec Date: 10/05/[address]: Fran edwards MD Spec Type: SURGICAL P Received: 10/06/08-1103 Copies to: SPECIMEN NEOPLASM FROM RIGHT MEDIAL TIBIAL AREA HISTORY PRE-OP DIAGNOSIS: Carbuncle or furuncle CLINICAL INFORMATION: Removed raised and reddish looking neoplasm from located within [facility] medial tibial area. GROSS DESCRIPTION The specimen is received in formalin labelled Surekha Anguiano, and consists of a punch skin specimen measuring 0.8 x 0.8 x 0.8 cm. The surface of the skin is siegel-white and shows an irregular, pigmented lesion. The specimen is not oriented. It is bisected, submitted, one cassette. DIAGNOSIS Skin, right medial tibial, punch biopsy: Pyogenic granuloma. Signed Electronically by: VNANESA RENE 10/09/08 1300 -- -- DEPARTMENT OF PATHOLOGY, [address] [place] [address] [facility] Permit #[id number] Indio Santacruz M.D. Director Vannesa Rene M.D. [place] Dir archie -- 37 ---- RUN DATE: 09/22/08 [facility] NMI LIVE PAGE 1 RUN TIME: 1407 Specimen Inquiry RUN USER: INTERFACE -- Name: SUREKHA ANGUIANO Ligia Status: REG REF Re09/18/08 Age/Sex: 58/F Unit#: [id number] Location: [facility]. : [birth year] -- Specimen: [id number] SOUT Spec Date: 09/18/[address]: Fran edwards MD Spec Type: CYTOLOGY Received: 09/19/08 Copies to: SOURCE ECTOCERVICAL/ENDOCERVICAL Thin Prep with Reflex HPV Test PATIENT INFORMATION ACTUAL COLLECTION DATE: 09/18/08 ? No POST MENOPAUSAL? Yes HYSTERECTOMY? No ADEQUACY OF SPECIMEN Satisfactory for evaluation * Transformation zone component identified * DIAGNOSIS NEGATIVE FOR INTRAEPITHELIAL LESION OR MALIGNANCY * NOTE Specimen sent to [facility], [place], [place] for high risk HPV DNA testing on 09/19/08 at 1600 by DB. ADDENDUM Addendum #1 Entered: 09/22/08-1402 [facility] Human Papilloma Virus test results received with preparation and diagnosis completed by [facility], [place], [place]. Results: NEGATIVE High Risk (HPV types 16, 18, 31, 33, 35, 39, 45, 51, 52, 56, 58, 59, 68) -- DEPARTMENT OF PATHOLOGY, [address] [place] [address] [facility] Permit #[id number] Luis Desouza M.D. [place] Dir archie -- -- RUN DATE: 09/22/08 [facility] NMI LIVE PAGE 2 RUN TIME: 1407 Specimen Inquiry RUN USER: INTERFACE -- Name: SUREKHA ANGUIANO Status: REG REF Re09/18/08 Age/Sex: 58/F Unit#: [id number] Location: [facility] : 54 -- -- CONTINUED -- ADDENDUM (Continued) Addendum Review Warren MAGDALENO([facility]) 09/22/08 -- This Pap test was evaluated with the assistance of the ThinPrep Pap Test Imaging System. The Pap Smear is a screening test designed to aid in the detection of premalign ant and malignant conditions of the uterine cervix. It is not a diagnostic procedure a nd should not be used as the sole means of detecting cervical cancer. Both false- positive and false-negative reports do occur. Depending on your risk status, a Pap smear ashley uld be obtained and evaluated every one to three years. Initial evaluation performed by Warren MAGDALENO([facility]) 09/19/08 Final Interpretation electronically signed by: Warren MAGDALENO([facility]) 09/19/08 144 4 -- -- DEPARTMENT OF PATHOLOGY, [address] [place] [address] [facility] Permit #[id number] Indio Santacruz M.D. Director Vannesa Rene M.D. [place] Dir sheareror -- 38 1-3 EPT 0-3 RBC 39 ---- RUN DATE: 09/20/07 [facility] NMI LIVE PAGE 1 RUN TIME: 928 Specimen Inquiry RUN USER: INTERFACE [id number] SUREKHA ANGUIANO 57/F <REG REF 09/15> ([id number]) STEPHAN Martinez MD, Roddy Patricia -- Specimen: [id number] SOUT Spec Date: 09/15/[address]: Fran edwards MD Spec Type: CYTOLOGY Received: 09/16/07-7885 Copies to: SOURCE ECTOCERVICAL/ENDOCERVICAL Thin Prep with Reflex HPV Test PATIENT INFORMATION ACTUAL COLLECTION DATE: 09/15/07 ? NO POST MENOPAUSAL? Yes HYSTERECTOMY? No ADEQUACY OF SPECIMEN Satisfactory for evaluation * Transformation zone component identified * DIAGNOSIS NEGATIVE FOR INTRAEPITHELIAL LESION OR MALIGNANCY * This Pap test was evaluated with the assistance of the ThinPrep Pap Test Imaging System. The Pap Smear is a screening test designed to aid in the detection of premalign ant and malignant conditions of the uterine cervix. It is not a diagnostic procedure a nd should not be used as the sole means of detecting cervical cancer. Both false- positive and false-negative reports do occur. Depending on your risk status, a Pap smear ashley uld be obtained and evaluated every one to three years. Final Interpretation electronically signed by: Jameel FRYE(ASCP) 09/20/07 0929 -- -- DEPARTMENT OF PATHOLOGY, [address] [place] [address] [facility] Permit #[id number] Indio Santacruz M.D. Director of Laboratories -- 40 Anion gap measurement may be of limited value in the presence of any alkalosis, especially in a combined acid base disorder. . 41 Classification: High . 42 Classification: High . 43 CALCULATED LDL APPROXIMATES THE VALUE OF A DIRECT LDL MEASUREMENT. Classification: High . 44 ---- RUN DATE: 09/17/06 [facility] NMI LIVE PAGE 1 RUN TIME: 1200 Specimen Inquiry RUN USER: INTERFACE [id number] SUREKHA ANGUIANO 56/F <REG REF 09/14> ([id number]) STEPHAN Martinez MD., See lanem Harshad -- Specimen: [id number] SOUT Spec Date: 09/14/[address]: Fran edwards MD. Spec Type: CYTOLOGY Received: 09/16/06-1207 Copies to: SOURCE ECTOCERVICAL/ENDOCERVICAL Thin Prep with Reflex HPV Test PATIENT INFORMATION ACTUAL COLLECTION DATE: 09/14/06 ADEQUACY OF SPECIMEN Satisfactory for evaluation * Transformation zone component identified * DIAGNOSIS NEGATIVE FOR INTRAEPITHELIAL LESION OR MALIGNANCY * The Pap Smear is a screening test designed to aid in the detection of premalign ant and malignant conditions of the uterine cervix. It is not a diagnostic procedure an d should not be used as the sole means of detecting cervical cancer. Both false-positive and false-negative reports do occur. Depending on your risk status, a Pap smear ashley uld be obtained and evaluated every one to three years. Signed Electronically signed Warren MAGDALENO(AS[facility]) 09/17/06 -- -- DEPARTMENT OF PATHOLOGY, [address] [place] [address] [facility] Permit #[id number] Fran Burgess II, M.D. Director Indio Santacruz M.D. [place] D irector -- 45 URINE MICRO- 2-3 WBC'S 1-2 RBC'S 1-2 EPI'S Procedures Date CPT Code Description Status 02/08/2018 19872 Brief Emotional/Behav Assessment W/ Scoring Doc Per Completed Standard Inst 02/08/2018 20671 X-Ray Chest 1 V Completed 01/06/2018 03142 X-Ray Chest 2 V Completed 02/16/2009 0 Payment Completed 10/05/2008 48807 Biopsy Skin Lesion Single Completed 09/21/2008 17284 Sigmoidoscopy Diagnostic Completed 08/19/2006 Mammogram Completed 10/03/2004 52372 Biopsy Endometrial/Endocervical Completed 05/18/2003 73658 X-Ray Knee,Ap&Lateral Oblique Views Completed Encounters Type Date Location Provider CPT E/M Dx Office Visit 05/11/2018 3:00p Main Office Bin Anderson M.D. 88829 A60.1 R63.4 L29.9 Office Visit 04/28/2018 10:15a Main Office Bin Anderson M.D. 34887 L29.9 M25.50 J90 M25.512 R53.83 Z23 Z41.8 K76.0 Office Visit 03/30/2018 1:30p Main Office Bin Anderson M.D. 89690 R74.0 E88.09 R63.4 J90 Z23 Office Visit 02/26/2018 3:00p Main Office Bin Anderson M.D. 64439 K60.0 Office Visit 02/08/2018 1:15p Main Office Bin Anderson M.D. 02262 R74.0 E88.09 J90 K80.80 K82.9 R63.4 L29.9 Z13.89 Office Visit 01/06/2018 11:45a Main Office Bin Anderson M.D. 62186 R53.83 R05 R63.4 L29.9 R21 Z12.11 Z23 Z77.120 Office Visit 09/26/2016 2:30p Main Office Fran Martinez M.D. 92200 Z71.89 Z00.00 Z12.39 Z12.11 Z12.4 Z13.220 Office Visit 09/01/2014 11:30a Main Office Fran Martinez M.D. 26447 719.47 V77.1 Office Visit 07/05/2014 5:00p Main Office Bin Anderson M.D. 74366 709.9 Office Visit 06/15/2013 3:00p Main Office Omer Castillo 52583 530.81 280.9 285.9 Office Visit 05/13/2012 1:40p Main Office Omer Castillo 36451 796.2 V65.49 300.00 Office Visit 03/28/2011 1:40p Main Office Omer Castillo 92921 473.9 784.91 524.79 796.2 Office Visit 03/29/2009 4:30p Main Office Fran Martinez M.D. 05132 719.45 Office Visit 03/28/2009 2:00p [place] [address] 618.01 618.4 Office Visit 01/17/2009 11:00a Main Office Bin Anderson M.D. 38070 386.11 Office Visit 10/17/2008 11:00a Main Office Ysabel De Guzman MD 10582 686.1 Office Visit 09/18/2008 2:30p Main Office Fran Martinez M.D. 24873 V76.10 V76.2 V76.51 V72.31 V70.0 V81.6 V04.81 V07.2 Office Visit 09/16/2007 10:45a Main Office Fran Martinez M.D. 99871 V76.10 V76.2 V76.51 V72.31 V70.0 Office Visit 05/12/2007 1:45p Main Office Bin Anderson M.D. 76793 784.7 Office Visit 03/18/2007 4:15p Main Office Fran Martinez M.D. 83360 780.4 Office Visit 09/14/2006 2:30p Main Office Fran Martinez M.D. 25219 789.09 625.9 V72.31 V70.0 V76.10 V76.51 V81.6 Office Visit 08/13/2005 4:45p Main Office Bin Anderson M.D. 65351 625.9 789.09 Office Visit 05/21/2005 9:15a Main Office Fran Martinez M.D. 63591 V70.0 V72.31 V76.51 V81.6 Office Visit 02/12/2005 11:30a Main Office Fran Martinez M.D. 70544 454.1 789.07 574.21 Office Visit 01/14/2005 2:30p Main Office Fran Martinez M.D. 78919 454.1 Office Visit 11/20/2004 4:15p Main Office Fran Martinez M.D. 44711 998.32 Office Visit 11/14/2004 1:30p Main Office Fran Martinez M.D. 42937 789.07 Office Visit 10/21/2004 4:30p Main Office Fran Martinez M.D. 14059 796.4 236.2 Office Visit 10/03/2004 9:30a Main Office Fran Martinez M.D. 62862 236.2 796.4 Plan of Care Future Appointment(s):05/28/2018 10:00 am - Radiology, Dexa & X-Ray at Main Pkiorn5105/28/2018 10:15 am - Bin Anderson M.D. at Main Cwoizq8905/14/2018 - Bin Anderson M.D.A60.1 Herpesviral infection of perianal skin and rectumComments:improving. Continue w/ supportive care, tincture of time. Encouraged lots of fluids. RTO prn if Sxs worsening or not improving as expected
--- OUTSIDE RECORDS SUMMARY | 2018-06-09 10:04 | XMS REPORT ---
:1950 External Reference #:[id number] Author Organization [facility] Address [address] [place] [address] Phone [phone] Care Team Providers Name Role Phone HCP given Primary Care Physician Unavailable Payers Type Date Identification Numbers Payment Provider Subscriber Commercial Policy Number: [id number] [facility] Demetriusburak Anguiano PayID: [id number] [address] [address] [place] [address] Problems Description No Information Family History Date [...] Form Strength Qnty SIG Indications Ordering Provider Co Q-10 Active Capsules 100mg 2 by mouth Unknown 018 every day Milk Thistle Active Unknown 018 PT For Hx evaluate and M25.512 Silcoff, Left>Right 018 - treat, Bin, Shoulder Pain modalities as M.D. 018 needed, instruct in hep Nifedipine Hx Ointment 30gm apply to anal K60.0 Silcoff, 018 - region Bin, 2-4x/day; for M.D. 018 acute anal fissure Lidocaine Hx Cream 5% 30gm apply to K60.0 Silcoff, 018 - affected area Bin, around anus M.D. 018 up to every 4hrs as needed for pain PT For Hx please 386.11 Silcoff, Vertigo (BPV) 009 - evaluate and Bin, treat M.D. 012 Please Offer Hx interfering 789.09 Silcoff, PT For 005 - with ability Bin, Abdominal to exercise. M.D. Wall Pain 005 please evaluate and treat. Immunizations CPT Code Status Date Vaccine Reaction Lot # 30125 Given 04/28/2018 Prevnar 13 [id number] 77564 Given 08/04/2011 Adacel or Boostrix, TDaP [id number] 83662 Given 09/18/2008 Flu, Split Virus 3Yrs [id number] 14768 Given 01/18/2000 DO Not Use- use U-code instead lyme vaccine -Unlisted Immunization Procedure 94532 Given 03/19/1999 DO Not Use- use U-code instead -Unlisted Immunization Procedure 14350 Given 02/16/1999 DO Not Use- use U-code instead -Unlisted Immunization Procedure 51309 Given 11/19/1997 Td Immunization 48532 Refused 01/06/2018 Shingrix Zoster (Shingles) Vaccine (HZV) Recomb,Subnit,Adjuvanted 66468 Refused 09/26/2016 Zostavax 61565 Refused 09/26/2016 Influenza Virus Vaccine, Quadrivalent, Split, Im Use 15625 Refused 09/01/2014 Flu, Split Virus 3Yrs Vital [...] Test Result H/L Range Note Laboratory test 02/08/2018 Alpha 1 Antitrypsin A1a 108 mg/dL 100 - 190 1 finding Anti Nuclear Antibody 3.9 U 2 Smooth [...] Color DANA Yellow Appearance-Urine CLEAR Clear Specific Smock-Ur 1.025 1.010-1.030 Esterase-Urine NEGATIVE Negative Nitrite NEGATIVE Negative Wtthurszvjcb-Wy-JVA NEGATIVE Negative Protein-Urine NEGATIVE Negative PH-Urine 5.0 [...] 38 Ua Ketones - 38 Ua Specific Smock 1.025 38 Ua Blood SM 38 Ua [...] Bilirubin - Ua Ketones - Ua Specific Smock 1.030 Ua Blood + Ua PH 5.0 Ua Protein - Ua Urobilinogen - Ua Nitrite - Ua Leukocytes ++ Laboratory test finding 09/14/2006 Cytology normal 44 Laboratory test finding 05/21/2005 Urine Microscopic Inhouse 0-1 WBC,1-2 epi Ua Inhouse 05/21/2005 Ua Glucose neg Ua Bilirubin neg Ua Ketones neg Ua Specific Smock 1.015 Ua Blood mod Ua PH 5.0 Ua Protein neg Ua Urobilinogen neg Ua Nitrite neg Ua Leukocytes neg Laboratory test finding 11/15/2004 Urine Microscopic Inhouse SEE RESULT NOTES 45 Ua Inhouse 11/15/2004 Ua Glucose NEG 45 Ua Bilirubin NEG 45 Ua Ketones NEG 45 Ua Specific Smock 1.030 45 Ua Blood ++ 45 Ua PH 5.0 45 Ua Protein TRACE 45 Ua Urobilinogen NEG 45 Ua Nitrite NEG 45 Ua Leukocytes NEG 45 1 Test Performed by: [facility] - [address] [address] 2 Interpretation: Positive (3.0-5.9) REFERENCE VALUE <=1.0 (Negative) Test Performed by: [facility] - [address] [address] 3 ADDITIONAL INFORMATION This test was developed and its performance characteristics determined by [facility] in a manner consistent with CLIA requirements. This test has not been cleared or approved by the U.S. Food and Drug Administration. Test Performed by: [facility] - [address] [address] 4 Test Performed by: [facility] - [facility] [address] [place] [address] 5 REFERENCE VALUE 20.0 - 51.0 Test Performed by: [address] [address] 6 A negative serum IgA endomysial antibody [...] as indicated by the Celiac Disease Comprehensive [place] ([place] Test Unit Code CDCOM). In addition serum IgA endomysial antibody may also be negative in gluten-sensitive patients (with celiac disease, dermatitis herpetiformis or other gluten-sensitive disorders), who adhere to a strict gluten-free diet. ADDITIONAL INFORMATION This test has been modified from the marketing officer's instructions. Its performance characteristics were determined by [facility] in a manner consistent with CLIA requirements. This test has not been cleared or approved by the U.S. Food and Drug Administration. Test Performed by: [address] [address] 7 Because ethnic data is not always [...] 10 SEE RESULT BELOW Name: SUREKHA ANGUIANO : [address]: Fran Martinez MD Acct: [id number] Unit: [id number] AGE: 66 Location: [facility] Re09/26/16 SEX: F Status: REG REF SPEC: [id number] DEBORAH: 09/26/[address] [facility] [address]: Fran Martinez MD REQ: [id number] RECD: 09/26/16 STATUS: SOUT _ ORDERED: IMAGE ANALYSIS, HPV/Thin Prep COMMENTS: [id number] FINAL DIAGNOSIS Negative for Intraepithelial lesion or [...] 66, and 68. Signed (signature on file) BRUNO Nugent (ASCP) 09/29 1420 This Pap test was evaluated with the assistance of the [employer] Test Imaging System. Due to cytologic findings at the vice president financial microscope, comprehensive manual rescreening by a Chief Substation Operator may be required. The Pap Smear is [...] performed at Main Lab DEPARTMENT OF PATHOLOGY, [address] [place] [address] Indio Santacruz M.D. Director [facility] # [id number] 11 The high-risk HPV types detected by [...] <15 (or dialysis) 15 RUN DATE: 08/03/13 [facility] LAB LIVE PAGE 1 RUN TIME: [address] [place] [address] Specimen Inquiry Name: SUREKHA ANGUIANO : [address]: Yung Carter MD Acct: [id number] Unit: [id number] AGE: 63 Location: [facility] Re08/02/13 SEX: F Status: REG REF SPEC: [id number] DEBORAH: 08/02/13-[address] [facility] [address]: Yung Carter MD REQ: [id number] RECD: 08/02/13 STATUS: CARA ANDRADE DR: Bin Anderson MD _ SOURCE: GAS ANTRUM SPDESC: ORDERED: Clotest Procedure Result Verified Site Clotest Final 08/03/13815 ML Clotest Negative END OF REPORT * ML=Testing performed at Main Lab DEPARTMENT OF PATHOLOGY, [facility] [employer] [place], [place] [address] Indio Santacruz M.D. Director [facility] Permit #[id number] 16 RUN DATE: 08/03/13 [facility] LAB LIVE PAGE 1 RUN TIME: 4780 [facility] [employer] [place], [place] [address] Specimen Inquiry Name: SUREKHA ANGUIANO : [address]: Yung Carter MD Acct: [id number] Unit: [id number] AGE: 63 Location: [facility] Re08/02/13 SEX: F Status: REG REF SPEC: [id number] DEBORAH: 08/02/13- SUBM DR: Yung Carter MD REQ: [id number] RECD: 08/02/13 STATUS: EL ANDRADE DR: Quita MOON _ ORDERED: LEVEL IV FINAL DIAGNOSIS Esophagus, [...] performed at Main Lab DEPARTMENT OF PATHOLOGY, [address] [place] [address] Indio Santacruz M.D. Director [facility] Permit #[id number] 17 Because ethnic data is not always [...] 0.06 ng/mL Not supportive of diagnosis of AL 0.06 - 0.50 ng/ml Indeterminate: suggest serial studies if clinically indicated. Greater than 0.5 ng/mL Consistent with diagnosis of AL 21 RUN DATE: 07/26/12 [facility] LAB LIVE PAGE 1 RUN TIME: [address] [place] [address] Specimen Inquiry Name: SUREKHA ANGUIANO : [address]: Rhett ARMENDARIZ,Farhan Patricia Acct: [id number] Unit: [id number] AGE: 62 Location: ICU Re07/22/12 SEX: F Status: ADM IN SPEC: [id number] DEBORAH: 07/24/[address]: Rhett ARMENDARIZ, Farhan Patricia REQ: [id number] RECD: 07/24/12 STATUS: CARA ANDRADE DR: TATE Anderson MD,[facility] SOURCE: NASAL SPDESC: ORDERED: MRSA Cult Scrn Procedure Result Verified Site MRSA Culture Screen Final 07/26/12- 1111 ML MRSA Screen No MRSA Isolated END OF REPORT * ML=Testing performed at Main Lab DEPARTMENT OF PATHOLOGY, [address] [place] [address] Indio Santacruz M.D. Director [facility] Permit #[id number] 22 Because ethnic data is not always [...] 0.06 ng/mL NOT SUPPORTIVE OF DIAGNOSIS OF AL 0.06 - 0.50 ng/ml INDETERMINATE: SUGGEST SERIAL STUDIES IF CLINICALLY INDICATED. Greater than 0.5 ng/mL CONSISTENT WITH DIAGNOSIS OF AL . 31 ICTOTEST IS A QUALITATIVE CONFIRMATORY [...] REFERENCE RANGE. 36 ---- RUN DATE: 10/09/08 [facility] NMI LIVE PAGE 1 RUN TIME: 1301 Specimen Inquiry RUN USER: INTERFACE -- Name: NERY ANGUIANOKenny Strong Status: REG REF Re10/05/08 Age/Sex: 58/F Unit#: [id number] Location: [facility] : 54 -- Specimen: [id number] SOUT Spec Date: 10/05/[address]: Fran edwards MD Spec Type: SURGICAL P Received: 10/06/08-1103 Copies to: SPECIMEN NEOPLASM FROM RIGHT MEDIAL TIBIAL AREA HISTORY PRE-OP DIAGNOSIS: Carbuncle or furuncle CLINICAL INFORMATION: Removed raised and reddish looking neoplasm from ri t medial tibial area. GROSS DESCRIPTION The specimen [...] punch biopsy: Pyogenic granuloma. Signed Electronically by: VANNESA RENE 10/09/08 1300 -- -- DEPARTMENT OF PATHOLOGY, [address] [place] [address] [facility] Permit #[id number] Indio Santacruz M.D. Director Vannesa Rene M.D. Membership Secretary Dir almanza -- 37 ---- RUN DATE: 09/22/08 [facility] NMI LIVE PAGE 1 RUN TIME: 1407 Specimen Inquiry RUN USER: INTERFACE -- Name: SUREKHA ANGUIANO Status: REG REF Re09/18/08 Age/Sex: 58/F Unit#: [id number] Location: [facility] : 54 -- Specimen: [id number] SOUT Spec Date: 09/18/[address]: Fran edwards MD Spec Type: CYTOLOGY Received: 09/19/08-848 Copies to: SOURCE ECTOCERVICAL/ENDOCERVICAL Thin Prep with Reflex HPV Test PATIENT INFORMATION ACTUAL COLLECTION DATE: 09/18/08 ? No POST MENOPAUSAL? Yes HYSTERECTOMY? No ADEQUACY OF SPECIMEN Satisfactory for evaluation * Transformation zone component identified * DIAGNOSIS NEGATIVE FOR INTRAEPITHELIAL LESION OR MALIGNANCY * NOTE [facility] [place] [place] [facility] high risk HPV DNA testing on 09/19/08 at 1600 by DB. ADDENDUM Addendum #1 Entered: 09/22/08140 [facility] Human Papilloma Virus test results received with preparation and diagnosis completed by [facility], [place], [place]. Results: NEGATIVE High Risk (HPV types 16, 18, 31, 33, 35, 39, 45, 51, 52, 56, 58, 59, 68) -- DEPARTMENT OF PATHOLOGY, [address] [place] [address] [facility] Permit #[id number] Luis Desouza M.D. Membership Secretary Dir archie -- -- RUN DATE: 09/22/08 [facility] NMI LIVE PAGE 2 RUN TIME: 1407 Specimen Inquiry RUN USER: INTERFACE -- Name: SUREKHA ANGUIANO Status: REG REF Re09/18/08 Age/Sex: 58/F Unit#: [id number] Location: [facility] : 54 -- -- CONTINUED -- ADDENDUM (Continued) Addendum Review Warren MAGDALENO([facility]) 09/22/08 -- This Pap test was evaluated [...] three years. Initial evaluation performed by Warren MAGDALENO([facility]) 09/19/08 Final Interpretation electronically signed by: Warren MAGDALENO([facility]) 09/19/08 144 4 -- -- DEPARTMENT OF PATHOLOGY, [address] [place] [address] [facility] Permit #[id number] Luis Desouza M.D. Membership Secretary Dir archie -- 38 1-3 EPT 0-3 RBC 39 ---- RUN DATE: 09/20/07 [facility] NMI LIVE PAGE 1 RUN TIME: 928 Specimen Inquiry RUN USER: INTERFACE [id number] SUREKHA ANGUIANO 57/F <REG REF 09/15> ([id number]) STEPHAN Martinez MD, Roddy Patricia -- Specimen: [id number] SOUT Spec Date: 09/15/[address]: Fran edwards MD Spec Type: CYTOLOGY Received: 09/16/07-1415 Copies to: SOURCE ECTOCERVICAL/ENDOCERVICAL Thin Prep with Reflex HPV Test PATIENT INFORMATION ACTUAL COLLECTION DATE: 09/15/07 ? NO POST MENOPAUSAL? Yes HYSTERECTOMY? No ADEQUACY OF SPECIMEN Satisfactory for evaluation * Transformation zone component identified * DIAGNOSIS NEGATIVE FOR INTRAEPITHELIAL LESION OR MALIGNANCY * This Pap test was evaluated with the assistance of the [employer] Pap Test Imaging System. The Pap Smear [...] 09/20/07 0929 -- -- DEPARTMENT OF PATHOLOGY, [address] [place] [address] [facility] Permit #[id number] Indio Santacruz M.D. Director of meevl -- 40 Anion gap measurement may be of limited value in the presence of any alkalosis, especially in a combined acid base disorder. . 41 Classification: High . 42 Classification: High . 43 CALCULATED LDL APPROXIMATES THE VALUE OF A DIRECT LDL MEASUREMENT. Classification: High . 44 ---- RUN DATE: 09/17/06 [facility] NMI LIVE PAGE 1 RUN TIME: 1200 Specimen Inquiry RUN USER: INTERFACE [id number] SUREKHA ANGUIANO 56/F <REG REF 09/14> ([id number]) See Elliott MD. -- Specimen: [id number] EL Spec Date: 09/14/[address]: Fran edwards [...] to three years. Signed Electronically signed Warren MAGDALENO([facility]) 09/17/06 -- -- DEPARTMENT OF PATHOLOGY, [address] [place] [address] [facility] Permit #[id number] Fran Burgess II, M.D. Director Indio Santacruz M.D. Membership Secretary D irector -- 45 URINE MICRO- 2-3 WBC'S 1-2 RBC'S 1-2 EPI'S Procedures Date CPT Code Description Status 02/08/2018 92797 Brief Emotional/Behav Assessment W/ Scoring Doc Per Completed Standard Inst 02/08/2018 70404 X-Ray Chest 1 V Completed 01/06/2018 51266 X-Ray Chest 2 V Completed 02/16/2009 0 Payment Completed 10/05/2008 60439 Biopsy Skin Lesion Single Completed 09/21/2008 34711 Sigmoidoscopy Diagnostic Completed 08/19/2006 Mammogram Completed 10/03/2004 66572 Biopsy Endometrial/Endocervical Completed 05/18/2003 72729 X-Ray Knee,Ap&Lateral Oblique Views Completed Encounters Type Date Location Provider CPT E/M Dx Office Visit 04/28/2018 10:15a Main Office Bin Anderson M.D. 37409 L29.9 M25.50 J90 M25.512 R53.83 Z23 Z41.8 K76.0 Office Visit 03/30/2018 1:30p Main Office Bin Anderson M.D. 22806 R74.0 E88.09 R63.4 J90 Z23 Office Visit 02/26/2018 3:00p Main Office Bin Anderson M.D. 94499 K60.0 Office Visit 02/08/2018 1:15p Main Office Bin Anderson M.D. 76583 R74.0 E88.09 J90 K80.80 K82.9 R63.4 L29.9 Z13.89 Office Visit 01/06/2018 11:45a Main Office Bin Anderson M.D. 79037 R53.83 R05 R63.4 L29.9 R21 Z12.11 Z23 Z77.120 Office Visit 09/26/2016 2:30p Main Office Fran Martinez M.D. 70073 Z71.89 Z00.00 Z12.39 Z12.11 Z12.4 Z13.220 Office Visit 09/01/2014 11:30a Main Office Fran Martinez M.D. 09208 719.47 V77.1 Office Visit 07/05/2014 5:00p Main Office Bin Anderson M.D. 86668 709.9 Office Visit 06/15/2013 3:00p Main Office Dequan Castillo.ACarola 82079 530.81 280.9 285.9 Office Visit 05/13/2012 1:40p Main Office Dequan Castillo.ACarola 81326 796.2 V65.49 300.00 Office Visit 03/28/2011 1:40p Main Office Quita Olmstead P.ACarola 68376 473.9 784.91 524.79 796.2 Office Visit 03/29/2009 4:30p Main Office Fran Martinez M.D. 66089 719.45 Office Visit 03/28/2009 2:00p [place] [address] 618.01 618.4 Office Visit 01/17/2009 11:00a Main Office Bin Anderson M.D. 11555 386.11 Office Visit 10/17/2008 11:00a [place] [address] 686.1 Office Visit 09/18/2008 2:30p Main Office Fran Martinez M.D. 89328 V76.10 V76.2 V76.51 V72.31 V70.0 V81.6 V04.81 V07.2 Office Visit 09/16/2007 10:45a Main Office Fran Martinez M.D. 05383 V76.10 V76.2 V76.51 V72.31 V70.0 Office Visit 05/12/2007 1:45p Main Office Bin Anderson M.D. 83112 784.7 Office Visit 03/18/2007 4:15p Main Office Fran Martinez M.D. 99457 780.4 Office Visit 09/14/2006 2:30p Main Office Fran Martinez M.D. 86752 789.09 625.9 V72.31 V70.0 V76.10 V76.51 V81.6 Office Visit 08/13/2005 4:45p Main Office Bin Anderson M.D. 40232 625.9 789.09 Office Visit 05/21/2005 9:15a Main Office Fran Martinez M.D. 85710 V70.0 V72.31 V76.51 V81.6 Office Visit 02/12/2005 11:30a Main Office Fran Martinez M.D. 44096 454.1 789.07 574.21 Office Visit 01/14/2005 2:30p Main Office Fran Martinez M.D. 58430 454.1 Office Visit 11/20/2004 4:15p Main Office Fran Martinez M.D. 89501 998.32 Office Visit 11/14/2004 1:30p Main Office Fran Martinez M.D. 09167 789.07 Office Visit 10/21/2004 4:30p Main Office Fran Martinez M.D. 23382 796.4 236.2 Office Visit 10/03/2004 9:30a Main Office Fran Martinez M.D. 79030 236.2 796.4 Plan of Care Future Appointment(s):05/28/2018 10:00 am - Radiology, Dexa & X-Ray at Main Gpccnq3405/28/2018 10:15 am - Bin Anderson M.D. at Main Office
--- OUTSIDE RECORDS SUMMARY | 2018-06-09 10:04 | XMS REPORT ---
:1950 External Reference #:[id number] Author Organization [facility] Address [address] [place] [address] Phone [phone] Care Team Providers Name Role Phone HCP given Primary Care Physician Unavailable Payers Type Date Identification Numbers Payment Provider Subscriber Commercial Policy Number: [id number] [facility] Demetriusburak Anguiano PayID: [id number] [address] [address] [place] [address] Problems Description No Information Family History Date [...] Code Status Date Vaccine Reaction Lot # [id number] Given 04/28/2018 Prevnar 13 [id number] 09874 Given 08/04/2011 Adacel or Boostrix, TDaP [id number] 93100 Given 09/18/2008 Flu, Split Virus 3Yrs [id number] 58448 Given 01/18/2000 DO Not Use- use U-code instead lyme vaccine -Unlisted Immunization Procedure 64583 Given 03/19/1999 DO Not Use- use U-code instead -Unlisted Immunization Procedure 67941 Given 02/16/1999 DO Not Use- use U-code instead -Unlisted Immunization Procedure 61005 Given 11/19/1997 Td Immunization 10730 Refused 01/06/2018 Shingrix Zoster (Shingles) Vaccine (HZV) Recomb,Subnit,Adjuvanted 45746 Refused 09/26/2016 Zostavax 72589 Refused 09/26/2016 Influenza Virus Vaccine, Quadrivalent, [place], [place] Use 96191 Refused 09/01/2014 Flu, Split Virus 3Yrs Vital [...] Color DANA Yellow Appearance-Urine CLEAR Clear Specific [place]-Ur 1.025 1.010-1.030 Esterase-Urine NEGATIVE Negative Nitrite NEGATIVE Negative Cdfifrtakttw-Tr-DYO NEGATIVE Negative Protein-Urine NEGATIVE Negative PH-Urine 5.0 [...] 38 Ua Ketones - 38 Ua Specific [place] 1.025 38 Ua Blood SM 38 Ua [...] Bilirubin - Ua Ketones - Ua Specific [place] 1.030 Ua Blood + Ua PH 5.0 Ua Protein - Ua Urobilinogen - Ua Nitrite - Ua Leukocytes ++ Laboratory test finding 09/14/2006 Cytology normal 44 Laboratory test finding 05/21/2005 Urine Microscopic Inhouse 0-1 WBC,1-2 epi Ua Inhouse 05/21/2005 Ua Glucose neg Ua Bilirubin neg Ua Ketones neg Ua Specific [place] 1.015 Ua Blood mod Ua PH 5.0 Ua Protein neg Ua Urobilinogen neg Ua Nitrite neg Ua Leukocytes neg Laboratory test finding 11/15/2004 Urine Microscopic Inhouse SEE RESULT NOTES 45 Ua Inhouse 11/15/2004 Ua Glucose NEG 45 Ua Bilirubin NEG 45 Ua Ketones NEG 45 Ua Specific [place] 1.030 45 Ua Blood ++ 45 Ua PH 5.0 45 Ua Protein TRACE 45 Ua Urobilinogen NEG 45 Ua Nitrite NEG 45 Ua Leukocytes NEG 45 1 Test Performed by: [facility] - [address] [address] 2 Interpretation: Positive (3.0-5.9) REFERENCE VALUE <=1.0 (Negative) Test Performed by: [facility] - [address] [address] 3 ADDITIONAL INFORMATION This test was developed and its performance characteristics determined by [facility] in a manner consistent with CLIA requirements. This test has not been cleared or approved by the U.S. Food and Drug Administration. Test Performed by: [facility] - [address] [address] 4 Test Performed by: [facility] - [facility] [address] [place] [address] 5 REFERENCE VALUE 20.0 - 51.0 Test Performed by: [address] [address] 6 A negative serum IgA endomysial antibody [...] as indicated by the Celiac Disease Comprehensive [place] ([place] Test [facility] Code CDCOM). In addition serum IgA endomysial antibody may also be negative in gluten-sensitive patients (with celiac disease, dermatitis herpetiformis or other gluten-sensitive disorders), who adhere to a strict gluten-free diet. ADDITIONAL INFORMATION This test has been modified from the peat shredder tender's instructions. Its performance characteristics were determined by [facility] in a manner consistent with CLIA requirements. This test has not been cleared or approved by the U.S. Food and Drug Administration. Test Performed by: [address] [address] 7 Because ethnic data is not always [...] [address]: Fran Martinez MD Acct: [id number] Unit: [id number] AGE: 66 Location: [facility] Re09/26/16 SEX: F Status: REG REF SPEC: [id number] DEBORAH: 09/26/16-[address] [facility] [address]: Fran Martinez MD REQ: [id number] RECD: 09/26/16288 STATUS: SOUT _ ORDERED: IMAGE ANALYSIS, HPV/Thin Prep COMMENTS: [id number] FINAL DIAGNOSIS Negative for Intraepithelial lesion or [...] and 68. Signed (signature on file) [facility] 09/29 1425 This Pap test was evaluated with the assistance of the [employer] Test Imaging System. Due to cytologic findings at the chemical tester microscope, comprehensive manual rescreening by a University Intern may be required. The Pap Smear is [...] performed at Main Lab DEPARTMENT OF PATHOLOGY, [address] [place], [place] [id number] Indio Santacruz M.D. Director [facility] # [id number] The high-risk HPV types detected by [...] <15 (or dialysis) 15 RUN DATE: 08/03/13 [facility] LAB LIVE PAGE 1 RUN TIME: [address] [place] [address] Specimen Inquiry Name: SUREKHA ANGUIANO : [address]: Yung Carter MD Acct: [id number] Unit: [id number] AGE: 63 Location: [facility] Re08/02/13 SEX: F Status: REG REF SPEC: [id number] DEBORAH: 08/02/[address] [facility] [address]: Yung Carter MD REQ: [id number] RECD: 08/02/13 STATUS: CARA ANDRADE DR: Bin Anderson MD _ SOURCE: GAS ANTRUM [facility]: ORDERED: Clotest Procedure Result Verified Site Clotest Final 08/03/13 52 ML Clotest Negative END OF REPORT * ML=Testing performed at Main Lab DEPARTMENT OF PATHOLOGY, [address] [place] [address] Indio Santacruz M.D. Director [facility] Permit #[id number] RUN DATE: 08/03/13 [facility] LAB LIVE PAGE 1 RUN TIME: [address] [place] [address] Specimen Inquiry Name: SUREKHA ANGUIANO : [address]: Yung Carter MD Acct: [id number] Unit: [id number] AGE: 63 Location: [facility] Re08/02/13 SEX: F Status: REG REF SPEC: [id number] DEBORAH: 08/02/13- SUBM DR: Yung Carter MD REQ: [id number] RECD: 08/02/131158 STATUS: EL ANDRADE DR: Quita [...] performed at Main Lab DEPARTMENT OF PATHOLOGY, [address] [place] [address] Indio Santacruz M.D. Director [facility] Permit #[id number] 17 Because ethnic data is not always [...] 0.06 ng/mL Not supportive of diagnosis of NV 0.06 - 0.50 ng/ml Indeterminate: suggest serial studies if clinically indicated. Greater than 0.5 ng/mL Consistent with diagnosis of NV 21 RUN DATE: 07/26/12 [facility] LAB LIVE PAGE 1 RUN TIME: [address] [place] [address] Specimen Inquiry Name: SUREKHA ANGUIANO : [address]: Rhett ARMENDARIZ,Farhan Patricia Acct: [id number] Unit: [id number] AGE: 62 Location: ICU Re07/22/12 SEX: F Status: ADM IN SPEC: [id number] DEBORAH: 07/24/[address]: Rhett ARMENDARIZ, Farhan Patricia REQ: [id number] RECD: 07/24/12 STATUS: CARA ANDRADE DR: TATE Anderson MD,[facility] SOURCE: NASAL SPDESC: ORDERED: MRSA Cult Scrn Procedure Result Verified Site MRSA Culture Screen Final 07/26/12- 1111 ML MRSA Screen No MRSA Isolated END OF REPORT * ML=Testing performed at Main Lab DEPARTMENT OF PATHOLOGY, [address] [place] [address] Indio Santacruz M.D. Director [facility] Permit #[id number] 22 Because ethnic data is not always [...] has been shown to interfere with the [place] method for measuring total bilirubin. Samples from [...] has been shown to interfere with the [place] method for measuring total bilirubin. Samples from [...] 0.06 ng/mL NOT SUPPORTIVE OF DIAGNOSIS OF NV 0.06 - 0.50 ng/ml INDETERMINATE: SUGGEST SERIAL STUDIES IF CLINICALLY INDICATED. Greater than 0.5 ng/mL CONSISTENT WITH DIAGNOSIS OF NV . 31 ICTOTEST IS A QUALITATIVE CONFIRMATORY [...] REFERENCE RANGE. 36 ---- RUN DATE: 10/09/08 [facility] NMI LIVE PAGE 1 RUN TIME: 1301 Specimen Inquiry RUN USER: INTERFACE -- Name: SUREKHA [facility]GUIANO [id number] Status: REG REF Re10/05/08 Age/Sex: 58/F Unit#: [id number] Location: [facility] : [birth year] -- Specimen: [id number] SOUT Spec Date: 10/05/[address]: Fran edwards MD Spec Type: SURGICAL P Received: 10/06/08-1103 Copies to: SPECIMEN NEOPLASM FROM RIGHT MEDIAL TIBIAL AREA HISTORY PRE-OP DIAGNOSIS: Carbuncle or furuncle CLINICAL INFORMATION: Removed raised and reddish looking neoplasm from [facility] medial tibial area. GROSS DESCRIPTION The specimen [...] 10/09/08 1300 -- -- DEPARTMENT OF PATHOLOGY, [address] [place] [address] [facility] Permit #[id number] Indio Santacruz M.D. Director Vannesa Rene M.D. Fumigator And Sterilizer Dir archie -- 37 ---- RUN DATE: 09/22/08 [facility] NMI LIVE PAGE 1 RUN TIME: 1407 Specimen Inquiry RUN USER: INTERFACE -- Name: SUREKHA ANGUIANO Ligia Status: REG REF Re09/18/08 Age/Sex: 58/F Unit#: [id number] Location: [facility]. : 54 -- Specimen: [id number] SOUT Spec Date: 09/18/[address]: Fran edwards MD Spec Type: CYTOLOGY Received: 09/19/08 Copies to: SOURCE ECTOCERVICAL/ENDOCERVICAL Thin Prep with Reflex HPV Test PATIENT INFORMATION ACTUAL COLLECTION DATE: 09/18/08 ? No POST MENOPAUSAL? Yes HYSTERECTOMY? No ADEQUACY OF SPECIMEN Satisfactory for evaluation * Transformation zone component identified * DIAGNOSIS NEGATIVE FOR INTRAEPITHELIAL LESION OR MALIGNANCY * NOTE Specimen sent to [facility], [place], [place] for high risk HPV DNA testing on 09/19/08 at 1600 by DB. ADDENDUM Addendum #1 Entered: 09/22/08-140 [facility] Human Papilloma Virus test results received with preparation and diagnosis completed by [facility], [place], [place]. Results: NEGATIVE High Risk (HPV types 16, 18, 31, 33, 35, 39, 45, 51, 52, 56, 58, 59, 68) -- DEPARTMENT OF PATHOLOGY, [address] [place] [address] [facility] Permit #[id number] Luis Desouza M.D. Fumigator And Sterilizer Dir archie -- -- RUN DATE: 09/22/08 [facility] NMI LIVE PAGE 2 RUN TIME: 1407 Specimen Inquiry RUN USER: INTERFACE -- Name: SUREKHA ANGUIANO Status: REG REF Re09/18/08 Age/Sex: 58/F Unit#: [id number] Location: [facility] : 54 -- -- CONTINUED -- ADDENDUM (Continued) Addendum Review Warren MAGDALENO([facility]) 09/22/08 -- This Pap test [...] three years. Initial evaluation performed by Warren MAGDALENO([facility]) 09/19/08 Final Interpretation electronically signed by: Warren MAGDALENO([facility]) 09/19/08 144 4 -- -- DEPARTMENT OF PATHOLOGY, [address] [place] [address] [facility] Permit #[id number] Indio Santacruz M.D. Director Vannesa Rene M.D. Fumigator And Sterilizer Dir sheareror -- 38 1-3 EPT 0-3 RBC 39 ---- RUN DATE: 09/20/07 [facility] NMI LIVE PAGE 1 RUN TIME: 928 Specimen Inquiry RUN USER: INTERFACE [id number] SUREKHA ANGUIANO 57/F <REG REF 09/15> ([id number]) STEPHAN Martinez MD, Roddy Patricia -- Specimen: [id number] SOUT Spec Date: 09/15/[address]: Fran edwards MD Spec Type: CYTOLOGY Received: 09/16/07-7095 Copies to: SOURCE ECTOCERVICAL/ENDOCERVICAL Thin Prep with [...] 09/20/07 0929 -- -- DEPARTMENT OF PATHOLOGY, [address] [place] [address] [facility] Permit #[id number] Indio Santacruz M.D. Director of Laboratories -- 40 Anion gap measurement may be of limited value in the presence of any alkalosis, especially in a combined acid base disorder. . 41 Classification: High . 42 Classification: High . 43 CALCULATED LDL APPROXIMATES THE VALUE OF A DIRECT LDL MEASUREMENT. Classification: High . 44 ---- RUN DATE: 09/17/06 [facility] NMI LIVE PAGE 1 RUN TIME: 1200 Specimen Inquiry RUN USER: INTERFACE [id number] SUREKHA ANGUIANO 56/F <REG REF 09/14> ([id number]) STEPHAN Martinez MD., See lanem Harshad -- Specimen: [id number] SOUT Spec Date: 09/14/[address]: Fran [...] MAGDALENO(ASCP) 09/17/06 -- -- DEPARTMENT OF PATHOLOGY, [address] [place] [address] [facility] Permit #[id number] Fran Burgess II, M.D. Director Indio Santacruz M.D. Fumigator And Sterilizer D irector -- 45 URINE MICRO- 2-3 WBC'S 1-2 RBC'S 1-2 EPI'S Procedures Date CPT Code Description Status 02/08/2018 53811 Brief Emotional/Behav Assessment W/ Scoring Doc Per Completed Standard Inst 02/08/2018 38198 X-Ray Chest 1 V Completed 01/06/2018 99997 X-Ray Chest 2 V Completed 02/16/2009 0 Payment Completed 10/05/2008 10628 Biopsy Skin Lesion Single Completed 09/21/2008 42662 Sigmoidoscopy Diagnostic Completed 08/19/2006 Mammogram Completed 10/03/2004 66362 Biopsy Endometrial/Endocervical Completed 05/18/2003 41152 X-Ray Knee,Ap&Lateral Oblique Views Completed Encounters Type Date Location Provider CPT E/M Dx Office Visit 05/11/2018 3:00p Main Office Bin Anderson M.D. 29690 A60.1 R63.4 L29.9 Office Visit 04/28/2018 10:15a Main Office Bin Anderson M.D. 85342 L29.9 M25.50 J90 M25.512 R53.83 Z23 Z41.8 K76.0 Office Visit 03/30/2018 1:30p Main Office Bin Anderson M.D. 27503 R74.0 E88.09 R63.4 J90 Z23 Office Visit 02/26/2018 3:00p Main Office Bin Anderson M.D. 09162 K60.0 Office Visit 02/08/2018 1:15p Main Office Bin Anderson M.D. 04767 R74.0 E88.09 J90 K80.80 K82.9 R63.4 L29.9 Z13.89 Office Visit 01/06/2018 11:45a Main Office Bin Anderson M.D. 34380 R53.83 R05 R63.4 L29.9 R21 Z12.11 Z23 Z77.120 Office Visit 09/26/2016 2:30p Main Office Fran Martinez M.D. 67293 Z71.89 Z00.00 Z12.39 Z12.11 Z12.4 Z13.220 Office Visit 09/01/2014 11:30a Main Office Fran Martinez M.D. 36895 719.47 V77.1 Office Visit 07/05/2014 5:00p Main Office Bin Anderson M.D. 30004 709.9 Office Visit 06/15/2013 3:00p Main Office Omer Castillo 04404 530.81 280.9 285.9 Office Visit 05/13/2012 1:40p Main Office Omer Castillo 48673 796.2 V65.49 300.00 Office Visit 03/28/2011 1:40p Main Office Omer Castillo 74292 473.9 784.91 524.79 796.2 Office Visit 03/29/2009 4:30p Main Office Fran Martinez M.D. 28753 719.45 Office Visit 03/28/2009 2:00p [place] [address] 618.01 618.4 Office Visit 01/17/2009 11:00a Main Office Bin Anderson M.D. 76120 386.11 Office Visit 10/17/2008 11:00a [place] [address] 686.1 Office Visit 09/18/2008 2:30p Main Office Fran Martinez M.D. 02674 V76.10 V76.2 V76.51 V72.31 V70.0 V81.6 V04.81 V07.2 Office Visit 09/16/2007 10:45a Main Office Fran Martinez M.D. 46317 V76.10 V76.2 V76.51 V72.31 V70.0 Office Visit 05/12/2007 1:45p Main Office Bin Anderson M.D. 97612 784.7 Office Visit 03/18/2007 4:15p Main Office Fran Martinez M.D. 04965 780.4 Office Visit 09/14/2006 2:30p Main Office Fran Martinez M.D. 55868 789.09 625.9 V72.31 V70.0 V76.10 V76.51 V81.6 Office Visit 08/13/2005 4:45p Main Office Bin Anderson M.D. 70282 625.9 789.09 Office Visit 05/21/2005 9:15a Main Office Fran Martinez M.D. 65036 V70.0 V72.31 V76.51 V81.6 Office Visit 02/12/2005 11:30a Main Office Fran Martinez M.D. 85896 454.1 789.07 574.21 Office Visit 01/14/2005 2:30p Main Office Fran Martinez M.D. 56594 454.1 Office Visit 11/20/2004 4:15p Main Office Fran Martinez M.D. 75805 998.32 Office Visit 11/14/2004 1:30p Main Office Fran Martinez M.D. 17731 789.07 Office Visit 10/21/2004 4:30p Main Office Fran Martinez M.D. 15563 796.4 236.2 Office Visit 10/03/2004 9:30a Main Office Fran Martinez M.D. 86207 236.2 796.4 Plan of Care Future Appointment(s):05/28/2018 10:00 am - Radiology, Dexa & X-Ray at Main Dxjbia7405/28/2018 10:15 am - Bin Anderson M.D. at Main Oizjtc3505/11/2018 - Bin Anderson M.D.A60.1 Herpesviral infection of perianal skin and rectumNew Medication:Valacyclovir HCL 500 mgComments:Swab for HSV taken by rubbing firmly over 3 of the perianal sores. Counseled pt re suspected Dx of HSV. 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 Discussed risk of recurrence. I gave her a Rx for valacyclovir to have on hand in case of a future outbreak, advised against using it for this outbreak as Sxs present already beyond 48-72hrs. Advised use of topical lidocaine up to q2h, continue w/ local care, sitz baths. ALso advised to use the nifedipine cream bid for now b/o possibility of a fissurre at 6 o' clock.R63.4 Abnormal weight lossComments:Recently evaluated. At this time I think we should wait on repeat CXR wc is planned at her upcoming appt next month.L29.9 Pruritus, unspecifiedComments:Once again discussed option of topical steroid as well as po meds for non specific itch incl TCA/Doxepin, once again refused by pt
[2018-06-09] MEDS ORDERED: Aspirin 81 mg CHEW TAB* 81 MG TAB.CHEW PO ONE (10:19)
[2018-06-09] MEDS ORDERED: Metoprolol Tartrate IV* 1 MG/ML 5 ML VIAL IV ONE (10:27)
--- NOTE | 2018-06-09 10:32 | ED ---
HPI Chest Pain - HPI Summary HPI Summary: This patient is a 68 year old F presenting to ED with a chief complaint of L- sided CP since 399. The CC is described as chest pressure that alleviated after 2-3 hours s/p arguing with someone about her house. The patient rates the pain 0/10 in severity currently. Symptoms aggravated by stress. Symptoms alleviated by spontaneous resolution. Patient denies nausea and SOB. Patient reports she sees Dr. Anderson for liver issues and was sent in by him for the CP. Patient has not taken any ASA today. - History of Current Complaint Chief Complaint: EDChestPainROMI Time Seen by Provider: 06/09/18 10:06 Hx Obtained From: Patient Onset/Duration: Started Hours Ago - since 399, Resolved - 2-3 hours later from onset Timing: Constant, Lasting Hours Current Severity: None Pain Intensity: 0 Pain Scale Used: 0-10 Numeric Chest Pain Location: Discrete at: - L sided chest pain Character: Pressure/Squeezing Aggravating Factor(s): Other: - stress Alleviating Factor(s): Spontaneous Resolution Associated Signs and Symptoms: Positive: Other: - Patient denies nausea and SOB. - Allergy/Home Medications Allergies/Adverse Reactions: Allergies Allergy/AdvReac Type Severity Reaction Status Date / Time amoxicillin Allergy Mild Hives Verified 06/09/18 10:32 sulfisoxazole Allergy Mild Hives Verified 06/09/18 10:32 [From Gantrisin] cephalexin [From Keflex] Allergy Hives Verified 06/09/18 10:32 erythromycin base Allergy Hives Verified 06/09/18 10:32 nystatin Allergy Unknown Verified 06/09/18 10:32 Reaction Details Penicillins Allergy Hives Verified 06/09/18 10:32 sulfite Allergy Hives Verified 06/09/18 10:32 ANTIBIOTICS Allergy Intermediate Hives Uncoded 06/09/18 10:32 NARCOTICS Allergy Mild FEVER AND Uncoded 06/09/18 10:32 NAUSEA Avocados Allergy Unknown GI Upset Uncoded 06/09/18 10:32 Bananas Allergy Unknown GI Upset Uncoded 06/09/18 10:32 Carrots Allergy Unknown GI Upset Uncoded 06/09/18 10:32 Water chestnuts Allergy Unknown GI Upset Uncoded 06/09/18 10:32 Home Medications: Home Medications L.acidoph,Paracasei, B.lactis [Probiotic] 1 each PO TID 06/09/18 [History Confirmed 06/09/18] Milk Thistle 100 mg PO DAILY 06/09/18 [History Confirmed 06/09/18] PMH/Surg Hx/FS Hx/Imm Hx Endocrine/Hematology History: Denies: Hx Diabetes Cardiovascular History: Denies: Hx Hypertension Infectious Disease History: No Infectious Disease History: Denies: Traveled Outside the [place] in Last 30 Days - Family History Known Family History: Positive: Cardiac Disease - Social History Alcohol Use: None Substance Use Type: Reports: None Smoking Status (MU): Former Smoker Review of Systems Positive: Chest Pain - L-sided Negative: Shortness Of Breath Negative: Nausea All Other Systems Reviewed And Are Negative: Yes Physical Exam - Summary Physical Exam Summary: Appearance: Well appearing, no pain distress Skin: warm, dry, reflects adequate perfusion Head/face: normal Eyes: EOMI, MICHELLE ENT: normal Neck: supple, non-tender Respiratory: Fine crackles in the bases, breath sounds present Cardiovascular: RRR, pulses symmetrical, reproducible tenderness to anterior chest wall on the left Abdomen: non-tender, soft Bowel Sounds: present Musculoskeletal: normal, strength/ROM intact Neuro: normal, sensory motor intact, A&Ox3 Triage Information Reviewed: Yes Vital Signs On Initial Exam: Initial Vitals Temp Pulse Resp BP Pulse Ox 98 F 84 17 126/54 96 06/09/18 09:55 06/09/18 09:55 06/09/18 09:55 06/09/18 09:55 06/09/18 09:55 Vital Signs Reviewed: Yes Diagnostics - Vital Signs Vital Signs Temp Pulse Resp BP Pulse Ox 06/09/18 10:15 18 06/09/18 09:55 98 F 84 17 126/54 96 - Laboratory Result Diagrams: 06/09/18 10:51 06/09/18 10:51 Lab Statement: Any lab studies that have been ordered have been reviewed, and results considered in the medical decision making process. - Radiology CXR Radiology Interpretation Completed By: Radiologist - LINEAR ATELECTASIS OF THE LUNG BASES BILATERALLY. ED physician has reviewed this radiology report. - EKG 1007 Cardiac Rate: NL - 80 BPM EKG Rhythm: Sinus Rhythm EKG Interpretation: non-specific IVCD, poor R wave progression, nml ST Re-Evaluation - Re-Evaluation First Eval Re-Evaluation Time: 11:31 Chest Pain Course/Dx - Course Course Of Treatment: Patient with a great deal of stress lately and chest pain with anxiety related to an argument this morning. EKG, troponins unchanged from previous. Patient stabilized here and was doing well. She refused any aspirin. Her liver enzymes are improved. Albumin stable. - Chest Pain Differential Diagnosis/HQI/PQRI: Acute NE, ACS, Angina, CHF, Chest Wall, GI Disease, Lower Respiratory Infection, Pulmonary Edema, Pulmonary Embolism - Diagnoses Provider Diagnoses: Stress reaction, Atypical chest pain, Chronic liver disease Discharge - Sign-Out/Discharge Documenting (check all that apply): Patient Departure - Discharge Plan Condition: Improved Disposition: HOME Patient Education Materials: Chest Pain (ED), Anxiety (ED) Referrals: Bin Anderson MD [Primary Care Provider] - Additional Instructions: Call your doctor today to schedule follow-up appointment. You'll need an outpatient stress test. Your doctor can receive all your laboratories. Return if worse, new symptoms, exertional chest pain or other concerns as discussed. - Billing Disposition and Condition Condition: IMPROVED Disposition: Home - Attestation Statements Document Initiated by Scribe: Yes Documenting Scribe: Travon Rowland Provider For Whom Scribe is Documenting (Include Credential): Demetrius Kaminski MD Scribe Attestation: Travon Lynn, scribed for Deemtrius Kaminski MD on 06/09/18 at 1236. Scribe Documentation Reviewed: Yes Provider Attestation: The documentation as recorded by the Travon diallo accurately reflects the service I personally performed and the decisions made by me, Demetrius Kaminski MD
[2018-06-09] MEDS ORDERED: Famotidine TAB* 20 MG PO ONE (10:54)
--- NOTE | 2018-06-09 10:55 | RAD ---
HISTORY: CP chest pain COMPARISONS: February 15, 2012 VIEWS: 1: frontal portable view of the chest at 10:34 AM FINDINGS: LINES AND TUBES: None. CARDIOMEDIASTINAL SILHOUETTE: The cardiomediastinal silhouette is normal for portable technique. PLEURA: The costophrenic angles are sharp. No pleural abnormalities are noted. LUNG PARENCHYMA: There is linear opacification of the lung bases bilaterally. ABDOMEN: The upper abdomen is clear. There is no subphrenic gas. BONES AND SOFT TISSUES: No bone or soft tissue abnormalities are noted. IMPRESSION: LINEAR ATELECTASIS OF THE LUNG BASES BILATERALLY.
[2018-06-09 11:10] LABS: ABS Basophils 0.1 10^3/ul (0-0.2); ABS Eosinophils 0.2 10^3/ul (0-0.6); ABS Lymphocytes 1.6 10^3/ul (1.0-4.8); ABS Monocytes 0.7 10^3/ul (0-0.8); ABS Neutrophils 4.4 10^3/ul (1.5-7.7); ABS Nucleated RBC 0 10^3/ul; Eosinophil % 2.6 % (0-6); Hematocrit 39 % (35-47); Hemoglobin 12.8 g/dl (12.0-16.0); Lymphocyte % 22.5 % (25-47); Mean Corpuscular HGB Conc 33 g/dl (31-36); Mean Corpuscular Hemoglobin 30 pg (27-31); Mean Corpuscular Volume 91 fL (80-97); Mean Platelet Volume 8.3 um3 (7.4-10.4); Nucleated Red Blood Cells % 0; Platelet Count 319 10^3/ul (150-450); Red Blood Count 4.28 10^6/ul (4.00-5.40); Red Cell Distribution Width 16 % (10.5-15); White Blood Count 6.9 10^3/ul (3.5-10.8)
[2018-06-09 11:18] LABS: INR 0.94 (0.77-1.02)
[2018-06-09 11:24] LABS: EGFR Non-African American 59.6 (>60)
[2018-06-09 11:57] VITALS: BP 120/67
== END 2018-06-09 12:24 | disposition home or self-care (01) ==
LOC: ED 09:50
DX: F43.9 Reaction to severe stress, unspecified (principal); R07.89 Other chest pain; K76.9 Liver disease, unspecified; Z87.891 Personal history of nicotine dependence
CPT/HCPCS: 36415; 71045; 80053; 83605; 83880; 84484; 85025; 85610; 93005; 96374; 99283; A9270-GY

== ENCOUNTER 2019-08-24 15:08 | Emergency (ER) | payer BC ==
--- NOTE | 2019-08-24 16:18 | ED ---
GI/ HPI - HPI Summary HPI Summary: Patient is a 69-year-old female who presents to the emergency department today with a chief complaint of finding stool on her toilet paper after urination. Patient states earlier this morning she was having a bowel movement and after wiping noticed that the toilet tissue is brown and she did not know whether she had forgotten to wipe appropriately. Later in the day she had another bowel movement and reported the same thing happening and decided to come into the emergency department after calling her doctor. She denies any recent changes in bowel habits or consistency or character. Patient denies constipation. She has a significant past surgical history such as an oophorectomy for possible ovarian cancer, a partial colectomy with a temporary colostomy for diverticulitis with perforation. Patient denies personal history or family history of inflammatory bowel diseases such as ulcerative colitis and Crohn's disease. She stated that before today her bowel movements and been regular and she has not noticed any blood or pus in the stool. She's not had any abdominal pain or discomfort. She denies any fever chest pain, shortness breath, pain with urination, abdominal pain, vaginal discharge or discomfort. - History of Current Complaint Chief Complaint: EDAbdPain Time Seen by Provider: 08/24/19 15:41 Stated Complaint: BOWEL ISSUES PER PT Hx Obtained From: Patient Onset/Duration: Started Hours Ago - Patient noticed this this afternoon Current Severity: None Pain Intensity: 0 Location of Pain: None Associated Signs and Symptoms: Positive: Negative - Risk Factors GI Bleed Risk Factor(s): Negative Spontaneous AB Risk Factor(s): Negative Placental Abruption Risk Factor(s): Negative Ovarian Torsion Risk Factor(s): Ovarian Cysts/Tumors - History of right sided - Allergy/Home Medications Allergies/Adverse Reactions: Allergies Allergy/AdvReac Type Severity Reaction Status Date / Time amoxicillin Allergy Mild Hives Verified 06/09/18 10:32 sulfisoxazole Allergy Mild Hives Verified 06/09/18 10:32 [From Gantrisin] cephalexin [From Keflex] Allergy Hives Verified 06/09/18 10:32 erythromycin base Allergy Hives Verified 06/09/18 10:32 nystatin Allergy Unknown Verified 06/09/18 10:32 Reaction Details Penicillins Allergy Hives Verified 06/09/18 10:32 sulfite Allergy Hives Verified 06/09/18 10:32 ANTIBIOTICS Allergy Intermediate Hives Uncoded 06/09/18 10:32 NARCOTICS Allergy Mild FEVER AND Uncoded 06/09/18 10:32 NAUSEA Avocados Allergy Unknown GI Upset Uncoded 06/09/18 10:32 Bananas Allergy Unknown GI Upset Uncoded 06/09/18 10:32 Carrots Allergy Unknown GI Upset Uncoded 06/09/18 10:32 Water chestnuts Allergy Unknown GI Upset Uncoded 06/09/18 10:32 PMH/Surg Hx/FS Hx/Imm Hx Endocrine/Hematology History: Denies: Hx Diabetes Cardiovascular History: Denies: Hx Hypertension - Surgical History Surgical History: Yes - past history of right-sided oophorectomy, partial colectomy with temporary colostomy placement Infectious Disease History: No Infectious Disease History: Denies: Traveled Outside the [place] in Last 30 Days - Family History Known Family History: Positive: Cardiac Disease - Social History Alcohol Use: None Substance Use Type: Reports: None Smoking Status (MU): Former Smoker Review of Systems Constitutional: Negative Cardiovascular: Negative Respiratory: Negative Gastrointestinal: Negative Genitourinary: Negative Psychological: Normal All Other Systems Reviewed And Are Negative: Yes Physical Exam Triage Information Reviewed: Yes Vital Signs On Initial Exam: Initial Vitals Temp Pulse Resp BP Pulse Ox 99.2 F 85 18 166/70 99 08/24/19 15:16 08/24/19 15:16 08/24/19 15:16 08/24/19 15:16 08/24/19 15:16 Vital Signs Reviewed: Yes Appearance: Positive: Well-Appearing, No Pain Distress Skin: Positive: Warm, Skin Color Reflects Adequate Perfusion Head/Face: Positive: Normal Head/Face Inspection Eyes: Positive: Normal, EOMI ENT: Positive: Hearing grossly normal Respiratory/Lung Sounds: Positive: Clear to Auscultation, Breath Sounds Present Cardiovascular: Positive: Normal, RRR, S1, S2 Abdomen Description: Positive: Nontender, Soft, Other: - Previous surgical scars noted inferior to the umbilicus and lateral to the umbilicus on the left side. Negative: Guarding Bowel Sounds: Positive: Present, Other - Normoactive bowel sounds Pelvic Exam: Positive: Speculum Exam Normal, Bimanual Exam Normal, No Cerv. Motion Tender, No Masses, Other - External examination of the genitalia reveals no erythema or lesions. Speculum exam was done with no pain and reveals no erythema or trauma to the vaginal webber. Cervix is no erythema and no signs of discharge. Vaginal canal shows no signs of possible fistulization. Bimanual exam was completed with no pain no masses were noted during examination.. Negative: Active Bleeding, Blood, Cervicitis, Discharge, Lesions, Tender w/ Cervical Motion, Tender Adnexa, Tender Uterus Psychiatric: Positive: Anxious AVPU Assessment: Alert Procedures - Sedation Patient Received Moderate/Deep Sedation with Procedure: No Diagnostics - Vital Signs Vital Signs Temp Pulse Resp BP Pulse Ox 08/24/19 15:16 99.2 F 85 18 166/70 99 - Laboratory Lab Statement: Any lab studies that have been ordered have been reviewed, and results considered in the medical decision making process. GIGU Course/Dx - Course Course Of Treatment: Patient was evaluated for leakage of stool in the emergency department today. Patient was seen and examined. Physical exam was benign but due to the patient's complaint of pelvic exam was deemed warranted. Pelvic exam was unremarkable with no concerning findings including fistulization of the colon into the vaginal canal. There is no drainage noted from the cervix. Urinalysis is obtained which came back showing no evidence of urinary tract infection and she is also asymptomatic for urinary tract infection at this time. Patient was instructed to follow-up with her primary care provider in the next 2-3 days for further evaluation of her symptoms. She is informed to return to the emergency department if she develops any new symptoms or her current symptoms worsen. - Diagnoses Differential Diagnoses - Female: Bladder Dysfunction, Cervicitis, Neoplasm - Colorectal fistula, Perirectal Abscess, Retained Foreign Body, Urinary Tract Infection Provider Diagnoses: Concern about disease without diagnosis Discharge ED - Sign-Out/Discharge Documenting (check all that apply): Patient Departure - Discharge Plan Condition: Stable Disposition: HOME Referrals: Bin Anderson MD [Primary Care Provider] - Additional Instructions: you were seen in the emergency department today for concern over leakage of stool. Exam today reveals nothing of immediate concern. Please follow-up with your primary care provider if you have any worsening or new symptoms. - Billing Disposition and Condition Condition: STABLE Disposition: Home - Attestation Statements Provider Attestation: pt seen by midlevel provider independently, based on their assessment, it was not necessary to present the case to me but I was available for consultation. I did not form a physician-patient relationship with the patient. The chart however, has been reviewed. am signing this note strictly in an administrative capacity.
[2019-08-24 17:13] LABS: Urine Appearance Clear; Urine Bacteria Absent (Absent); Urine Bilirubin Negative (Negative); Urine Blood 1+ (Negative); Urine Color Straw; Urine Glucose Negative (Negative); Urine Ketones Trace (Negative); Urine Nitrite Negative (Negative); Urine Protein Negative (Negative); Urine Red Blood Cell Trace(0-2/hpf) (Absent); Urine Specific Gravity 1.008 (1.010-1.030); Urine Urobilinogen Negative (Negative); Urine White Blood Cell Absent (Absent)
[2019-08-24 17:27] VITALS: BP 137/69
== END 2019-08-24 17:27 | disposition home or self-care (01) ==
LOC: ED 15:08
DX: Z04.89 Encounter for examination and observation for other specified reasons (principal); Z87.891 Personal history of nicotine dependence; Z90.721 Acquired absence of ovaries, unilateral; Z90.49 Acquired absence of other specified parts of digestive tract; Z88.1 Allergy status to other antibiotic agents; Z88.5 Allergy status to narcotic agent; Z88.0 Allergy status to penicillin; Z88.2 Allergy status to sulfonamides; Z88.8 Allergy status to other drugs, medicaments and biological substances
CPT/HCPCS: 81003; 81015; 99282